=== PATIENT | female | born 1950 | race Caucasian/White ===

== ENCOUNTER 2018-03-11 15:30 | Outpatient (RCR) | payer MEDICARE, SELFPAY ==
--- NOTE | 2018-03-11 16:02 | ST.OPRE ---
Visit Care Team Role Provider Type RADHAMES Osborn Family Provider Advanced Practioner Clinician Primary Care Provider Specialty: Medical Address: [facility] [place], [address] Email: Johnson Hernandez MD Attending Provider Physician Specialty: Ear, Nose, Throat Address: [address] [place] [address], [id number] Email: Speech-Language Pathology Evaluation/Summary SALES AND SERVICE REPRESENTATIVE Clinical Swallow Evaluation Start: 02/05/18 10:08 Freq: Status: Active Protocol: Document 02/04/18 10:09 LEYDI (Rec: 02/05/18 10:33 LEYDI [email or web address]) Clinical Swallow Evaluation Session Time Visit Start Time 12:30 Visit Stop Time 13:25 Total Visit Minutes 55 Visit Information Visit Number Initial Evaluation Plan of Care Dates 02/04/18 - 04/03/18 Insurance Information Medicare Referral Referring Physician Fiordaliza Jiménez ENT Reason for Referral Dysphagia, Cough Setting Assessment Location Outpatient Care Visit Type Note Type Initial Evaluation Next Note Type Next Note Type Treatment Note Patient Information Identification Type Name History 67-yr-old female with history of difficulty swallowing pills . On December 02, 2017, she presented urgently to [facility] ER after feeling a calcium pill was stuck in her throat, resulting in 8 hours of coughing. Chest x-ray in ER was unremarkable. She was evaluated by ENT via laryngoscopy, which revealed presumed residual edema of the right piriform but cannot completely rule out menants of the calcium pill. The pt had no subsequent s/sx of aspiration. She did undergo Modified Barium Swallow Study on December 19, 2017, during which flash penetration of thin liquid was observed x1 and significant pharyngeal residue in valleculae and piriforms was consistently observed. Also noted were bone spurs at C4-5, 5-6, and 6-7 which did not appear to impede bolus flow. Dysphagia therapy with Speech Pathology and GI consult were recommended. The pt has an endoscopy scheduled next month. The pt continues to experience difficulty swallowing pills and also bread. She describes both as getting stuck either at the base of the throat or at chest level. She also reports frequent dry mouth secondary to medication and compensates by drinking water throughout the day and with meals to assist clearance of solids. Additional PMHx: Arthritis, back pain, easy bruising, depression, fibromyalgia, headaches, jaw pain, neuropathy, osteoporosis, seizures, vision problems Subjective Observations Case history was obtained through medical records and patient interview. The pt arrived on time and was able to state her concerns and goals for treatment. 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 The pt compensates as needed by adding manual pressure to left TMJ while chewing. Oral phase is otherwise WNL. Pharyngeal Impairment Mildly Impaired Pharyngeal Phase Strategies Sitting Upright (90 deg) Double Swallow Effortful Swallow Small Bites and Sips Alternate Liquids/Solids Pharyngeal Phase Comments Reduced strength, coordination , and/or ROM of pharyngeal musculature resulting in reduced hyolaryngeal excursion , incomplete closure of laryngeal vestibule, and significant pharyngeal residue and increasing risk of aspiration. Pt complained of sticking sensation in throat and at upper chest area with intake of regular solids (soft sandwich, dry cracker), which cleared with 1-3 swallows of liquid wash. Dry swallow alone following intake did not adequately clear sticking sensation. Findings Rehabilitation Potential Good Impressions Pt presents with moderate pharyngeal dysphagia and would benefit from skilled intervention to increase strength, coordination, and ROM of pharyngeal musculature; compensatory swallow training ; and education to reduce risk of aspiration. The pt will also benefit from GI consult, which is already in place. Also recommend Dental consult to address TMJ issues. Diet Recommendations Liquids Order Thin Diet Order Regular Medication Recommendations Whole in Carrier Comments Added moisture to solids. Aspiration Precautions Recommended Precautions Upright at 90 Degrees Alternate Liquids/Solids Small Bites/Sips Effortful Swallow Double Swallow Supraglottic Swallow Treatment Plan Appropriate for Therapy Yes Therapy Recommendations 1 visit per week for 3 weeks, tapering to 1 visit every 2-3 weeks. Anticipated duration: 2-3 months. Dysphagia Goals Pt will independently perform exercises to increase strength , coordination and ROM of pharyngeal and laryngeal musculature to reduce risk of aspiration. Pt will use compensatory swallow strategies independently to reduce risk of aspiration. Pt will tolerate regular texture, thin liquids, and pills whole in a carrier with no overt s/sx of aspiration. Referrals/Other Recommended Referrals GI Consult Dental Evaluation SALES AND SERVICE REPRESENTATIVE Treatment Note Start: 02/05/18 10:08 Freq: Status: Active Protocol: Document 02/24/18 17:24 LEYDI (Rec: 02/24/18 17:34 LEYDI [email or web address]) Speech Pathology Treatment Note Session Time Visit Start Time 14:30 Visit Stop Time 15:15 Total Visit Minutes 45 Visit Information Visit Number [id number] Plan of Care Dates 02/04/18 - 04/03/18 Insurance Information Medicare Setting Treatment Setting Outpatient Care Visit Type Note Type Treatment Note Next Note Type Next Note Type Treatment Note General Information General Information Hx of difficulty swallowing pills and bread. In November 2017 , pt had pill apparently lodge in larynx. MBSS performed 03/02: flash penetration thin liquid, pharyngeal residue at vallecula and pyriform sinuses . Dysphagia tx and GI referrals recommended. Subjective Observations/Patient Presentation Pt reported compliance with HEP tasks. One episode of difficulty clearing pill from oral cavity. No episodes of sticking in throat or esophagus. Pt has EGD procedure tomorrow. The pt requested a copy of her MBS video, which was provided with signed Release of Information form. Chief Complaint(s) Swallowing Additional Areas of Concern Swallowing pills & bread Rehab Expectation/Goals: Patient Goals Improve swallow function and comfort Patient Knowledge/Awareness of SALES AND SERVICE REPRESENTATIVE Role Good in Treatment Patient/Caregiver Compliance with Home Excellent Exercise Program Objective Short Term Goals Pt will independently perform exercises to increase strength , coordination and ROM of pharyngeal and laryngeal musculature to reduce risk of aspiration. Pt will use compensatory swallow strategies independently to reduce risk of aspiration. Pt will tolerate regular texture, thin liquids, and pills whole in a carrier with no overt s/sx of aspiration. Retirement Goals Pt will independently perform exercises to increase strength , coordination and ROM of pharyngeal and laryngeal musculature to reduce risk of aspiration. Treatment Activities Education provided RE GERD/LPR and potential dysphagia related symptoms. Pt performed Lakshmi, Shaker, base of tongue and laryngeal lift exercises independently. Oral trials of thin liquid and dry cracker: Sticking sensation of cracker at level of pyriform sinuses, cleared with liquid wash. No overt s/sx of aspiration observed. Assessment Patient Response to Treatment Good Rehab Potential Good Impairments Identified Dysarthria Progress Towards Goals Good Progress Assessment of Overall Progress Improving Assessment of Improvement Pt is making good progress toward goals, is compliant with HEP tasks which she demonstrates independence in performing. Good tolerance of thin liquid. Sticking sensation continues with dry cracker, cleared with liquid wash. No overt s/sx of aspiration. Reviewed with Patient Goals Progress Being Made Home Exercise Program Patient/Caregiver Understanding Excellent Plan Comment Anticipate DC in 1-2 visits Treatment Emphasis Next Session F/U RE EGD results, DC planning Therapeutic Contents Client Education Home Exercise Program Swallowing/Feeding Provided Patient/Caregiver Instruction Home Exercise Program Plan of Care Questions/Concerns Therapy Recommendations Continue with Current Program Recommended Exercises/ Activities
== END 2018-06-25 09:27 ==
LOC: SP 15:30
PROVIDERS: Family Provider Nurse Practitioner Family; PCP Nurse Practitioner Family; Visit Provider Otolaryngology
DX: R13.19 Other dysphagia (principal); R05 Cough
CPT/HCPCS: 92526; 92610

== ENCOUNTER → 2019-01-29 10:45 | Outpatient (CLI) | payer MEDICARE, SELFPAY ==
--- NOTE | 2019-01-29 | DI.RAD.S_ITS ---
PROCEDURE: XR HIP W PEL IF DONE RT 2V INDICATIONS: Unilateral primary osteoarthritis, right hip TECHNIQUE: AP pelvis with lateral view(s) of the right hip(s). COMPARISON: [facility], , HIPBILAT 3TO4V W PEL IF PERFD, 10/23/2015, 12:25. FINDINGS: Bones: Moderate right hip joint osteophytic changes are seen. No fractures or dislocations. No evidence of avascular necrosis of femoral head. Pelvic ring appears intact. No suspicious bony lesions. Soft tissues: The visualized bowel gas pattern is normal. No suspicious soft tissue calcifications. IMPRESSION: Moderate right hip joint osteoarthritis. No fracture or dislocation. No evidence of avascular necrosis. Dictated by: Brad Krause M.D. on 01/29/2019 at 12:22 Approved by: Brad Krause M.D. on 01/29/2019 at 12:23
== END ==
PROVIDERS: Family Provider Nurse Practitioner Family; PCP Nurse Practitioner Family; Visit Provider Nurse Practitioner Family
DX: M16.11 Unilateral primary osteoarthritis, right hip (principal)
CPT/HCPCS: 73502

== ENCOUNTER → 2021-03-05 11:22 | Outpatient (CLI) | payer MEDICARE, SELFPAY ==
[2021-03-05 20:26] LABS: Add Manual Diff / Slide Review NO; Basophils Absolute Auto 100 /uL (0-100); Basophils Percent Auto 1.1 % (0-2); Eosinophils Absolute Auto 100 /uL (0-450); Eosinophils Percent Auto 2.7 % (2-4); Hematocrit 32.3 % (36-46); Lymphocytes Absolute Auto 2100 /uL (1100-4500); Lymphocytes Percent Auto 37.6 % (25-40); Mean Corpuscular HGB Conc 33.9 % (30-36); Mean Corpuscular Hemoglobin 29.3 PG (26-34); Mean Corpuscular Volume 86.3 fL (80-100); Monocytes Absolute Auto 400 /uL (0-900); Monocytes Percent Auto 7.4 % (3-14); Neutrophils Absolute Auto 2900 /uL (1500-7000); Neutrophils Percent Auto 51.2 % (50-75); Platelet Count 228 X10^3/uL (150-400); Red Blood Cell Count 3.74 X10^6/uL (4.0-5.2); White Blood Cell Count 5.6 X10^3/uL (4.5-11.0)
[2021-03-05 20:27] LABS: Alanine Aminotransferase 12 IU/L (<35); Albumin 3.8 g/dL (3.5-5.0); Albumin Globulin Ratio 1.3 (1.0-2.8); Alkaline Phosphatase 59 U/L (38-126); Aspartate Aminotransferase 48 IU/L (14-36); BUN Creatinine Ratio 14.7 (6-22); Bilirubin Total 0.7 mg/dL (0.2-1.3); Blood Urea Nitrogen 16 mg/dL (7-17); Calcium 9.5 mg/dL (8.4-10.2); Carbon Dioxide 28 mmol/L (22-32); Chloride 103 mmol/L (98-107); Estimated Glomerular Filt Rate 49.8 mL/min (>60); Globulin 2.9 g/dL (1.7-4.1); Glucose 94 mg/dL (80-110); Potassium 5.2 mmol/L (3.4-5.1); Sodium 137 mmol/L (137-145); Total Protein 6.7 g/dL (6.3-8.2)
[2021-03-05 20:30] LABS: HEMOLYSIS 70 (0-50)
[2021-03-05 20:55] LABS: TSH w/ Reflex to FT4 6.14 uIU/mL (0.47-4.68)
[2021-03-05 22:53] LABS: Free T4, Direct Thyroxine 1.17 ng/dL (0.78-2.19)
== END ==
PROVIDERS: PCP Family Medicine; Referring Provider Family Medicine; Visit Provider Family Medicine
DX: G40.909 Epilepsy, unspecified, not intractable, without status epilepticus (principal); M54.5 Low back pain; F32.9 Major depressive disorder, single episode, unspecified; G89.4 Chronic pain syndrome; N18.30 Chronic kidney disease, stage 3 unspecified
CPT/HCPCS: 80053; 84439; 84443; 85025

== ENCOUNTER → 2021-09-26 12:34 | Outpatient (CLI) | payer MEDICARE, SELFPAY ==
[2021-09-26 19:00] LABS: Add Manual Diff / Slide Review NO; Basophils Absolute Auto 100 /uL (0-100); Basophils Percent Auto 1.4 % (0-2); Eosinophils Absolute Auto 100 /uL (0-450); Eosinophils Percent Auto 2.6 % (2-4); Hematocrit 34.6 % (36-46); Hemoglobin 11.6 g/dL (12.0-16.0); Lymphocytes Absolute Auto 2200 /uL (1100-4500); Lymphocytes Percent Auto 40.3 % (25-40); Mean Corpuscular HGB Conc 33.6 % (30-36); Mean Corpuscular Hemoglobin 28.8 PG (26-34); Mean Corpuscular Volume 85.6 fL (80-100); Monocytes Absolute Auto 400 /uL (0-900); Monocytes Percent Auto 6.9 % (3-14); Neutrophils Absolute Auto 2700 /uL (1500-7000); Neutrophils Percent Auto 48.8 % (50-75); Platelet Count 236 X10^3/uL (150-400); Red Blood Cell Count 4.05 X10^6/uL (4.0-5.2); Red Cell Distribution Width 14.7 % (11.6-14.8); White Blood Cell Count 5.6 X10^3/uL (4.5-11.0)
[2021-09-26 19:28] LABS: Free T3, Triiodothyronine Free 2.82 pg/mL (2.77-5.27)
[2021-09-26 19:42] LABS: TSH w/ Reflex to FT4 5.22 uIU/mL (0.47-4.68)
[2021-09-26 20:44] LABS: Alanine Aminotransferase 9 IU/L (<35); Albumin 4.2 g/dL (3.5-5.0); Albumin Globulin Ratio 1.5 (1.0-2.8); Alkaline Phosphatase 51 U/L (38-126); Aspartate Aminotransferase 28 IU/L (14-36); BUN Creatinine Ratio 10.3 (6-22); Bilirubin Total 0.6 mg/dL (0.2-1.3); Blood Urea Nitrogen 12 mg/dL (7-17); Calcium 10.2 mg/dL (8.4-10.2); Carbon Dioxide 36 mmol/L (22-32); Chloride 103 mmol/L (98-107); Estimated Glomerular Filt Rate 46.3 mL/min (>60); Globulin 2.8 g/dL (1.7-4.1); Glucose 96 mg/dL (80-110); HEMOLYSIS < 15 (0-50); Potassium 4.3 mmol/L (3.4-5.1); Sodium 140 mmol/L (137-145)
[2021-09-26 23:02] LABS: Free T4, Direct Thyroxine 1.09 ng/dL (0.78-2.19)
== END ==
PROVIDERS: PCP Family Medicine; Referring Provider Physician Assistant; Visit Provider Physician Assistant
DX: Z79.899 Other long term (current) drug therapy (principal); D64.9 Anemia, unspecified; D75.A Glucose-6-phosphate dehydrogenase (G6PD) deficiency without anemia; N28.9 Disorder of kidney and ureter, unspecified; R94.6 Abnormal results of thyroid function studies; Z86.010 Personal history of colon polyps
CPT/HCPCS: 80053; 84439; 84443; 84481; 85025

== ENCOUNTER → 2021-10-04 15:15 | Outpatient (CLI) | payer MEDICARE, SELFPAY ==
[2021-10-08 08:35] LABS: Fecal Immunochemical Test Negative (Negative)
== END ==
PROVIDERS: PCP Family Medicine; Referring Provider Physician Assistant; Visit Provider Physician Assistant
DX: D64.9 Anemia, unspecified (principal); D75.A Glucose-6-phosphate dehydrogenase (G6PD) deficiency without anemia; N28.9 Disorder of kidney and ureter, unspecified; R94.6 Abnormal results of thyroid function studies; Z79.899 Other long term (current) drug therapy; Z86.010 Personal history of colon polyps
CPT/HCPCS: 82274

== ENCOUNTER → 2021-11-07 09:28 | Outpatient (CLI) | payer MEDICARE, SELFPAY ==
[2021-11-07 18:48] LABS: Add Manual Diff / Slide Review NO; Basophils Absolute Auto 0 /uL (0-100); Basophils Percent Auto 0.5 % (0-2); Eosinophils Absolute Auto 100 /uL (0-450); Eosinophils Percent Auto 2.3 % (2-4); Hematocrit 34.7 % (36-46); Hemoglobin 11.7 g/dL (12.0-16.0); Lymphocytes Absolute Auto 2100 /uL (1100-4500); Lymphocytes Percent Auto 38.1 % (25-40); Mean Corpuscular HGB Conc 33.6 % (30-36); Mean Corpuscular Hemoglobin 28.7 PG (26-34); Mean Corpuscular Volume 85.5 fL (80-100); Monocytes Absolute Auto 400 /uL (0-900); Monocytes Percent Auto 6.5 % (3-14); Neutrophils Absolute Auto 2800 /uL (1500-7000); Neutrophils Percent Auto 52.6 % (50-75); Platelet Count 238 X10^3/uL (150-400); Red Blood Cell Count 4.06 X10^6/uL (4.0-5.2); Red Cell Distribution Width 14.2 % (11.6-14.8); White Blood Cell Count 5.4 X10^3/uL (4.5-11.0)
[2021-11-07 18:57] LABS: Cholesterol 205 mg/dL (140-199); HDL Cholesterol 89 mg/dL (40-60); LDL Cholesterol Calculated 95 mg/dL (<100); Triglycerides 107 mg/dL (35-150)
[2021-11-07 19:00] LABS: Alanine Aminotransferase 9 IU/L (<35); Albumin 4.3 g/dL (3.5-5.0); Albumin Globulin Ratio 1.5 (1.0-2.8); Alkaline Phosphatase 52 U/L (38-126); Aspartate Aminotransferase 28 IU/L (14-36); BUN Creatinine Ratio 9.3 (6-22); Bilirubin Total 0.8 mg/dL (0.2-1.3); Blood Urea Nitrogen 10 mg/dL (7-17); Calcium 9.3 mg/dL (8.4-10.2); Carbon Dioxide 32 mmol/L (22-32); Chloride 103 mmol/L (98-107); Estimated Glomerular Filt Rate 50.3 mL/min (>60); Globulin 2.9 g/dL (1.7-4.1); Glucose 90 mg/dL (80-110); HEMOLYSIS < 15 (0-50); Potassium 4.3 mmol/L (3.4-5.1); Sodium 139 mmol/L (137-145); Total Protein 7.2 g/dL (6.3-8.2)
[2021-11-07 19:29] LABS: TSH w/ Reflex to FT4 6.45 uIU/mL (0.47-4.68)
[2021-11-07 20:36] LABS: Free T4, Direct Thyroxine 1.45 ng/dL (0.78-2.19)
== END ==
PROVIDERS: Internal Medicine Cardiovascular Disease; PCP Family Medicine; Visit Provider Physician Assistant
DX: Z79.899 Other long term (current) drug therapy (principal); N90.4 Leukoplakia of vulva; E03.8 Other specified hypothyroidism; Z13.220 Encounter for screening for lipoid disorders; N28.9 Disorder of kidney and ureter, unspecified; R94.6 Abnormal results of thyroid function studies; D64.9 Anemia, unspecified; Z13.6 Encounter for screening for cardiovascular disorders
CPT/HCPCS: 80053; 80061; 84439; 84443; 85025

== ENCOUNTER → 2022-01-30 10:02 | Outpatient (CLI) | payer MEDICARE, SELFPAY ==
[2022-01-30 19:54] LABS: Alanine Aminotransferase 10 IU/L (<35); Albumin 4.2 g/dL (3.5-5.0); Albumin Globulin Ratio 1.4 (1.0-2.8); Alkaline Phosphatase 68 U/L (38-126); Aspartate Aminotransferase 79 IU/L (14-36); BUN Creatinine Ratio 9.6 (6-22); Bilirubin Total 0.7 mg/dL (0.2-1.3); Blood Urea Nitrogen 11 mg/dL (7-17); Carbon Dioxide 30 mmol/L (22-32); Chloride 103 mmol/L (98-107); Estimated Glomerular Filt Rate 52 mL/min (>60); Globulin 3.1 g/dL (1.7-4.1); Glucose 98 mg/dL (80-110); HEMOLYSIS 22 (0-50); Potassium 4.4 mmol/L (3.4-5.1); Sodium 138 mmol/L (137-145); Total Protein 7.3 g/dL (6.3-8.2)
[2022-02-01 05:14] LABS: Thyroid Peroxidase Antibodies <8 IU/mL (0-34)
== END ==
PROVIDERS: PCP Family Medicine; Visit Provider Physician Assistant
DX: M79.7 Fibromyalgia (principal); R79.89 Other specified abnormal findings of blood chemistry
CPT/HCPCS: 80053; 84443; 86376

== ENCOUNTER → 2022-02-19 12:37 | Outpatient (CLI) | payer MEDICARE, SELFPAY ==
--- NOTE | 2022-02-19 12:45 | DI.RAD.S_ITS ---
PROCEDURE: XR PELVIS 1-2V INDICATIONS: pubic bone pain TECHNIQUE: Single view(s) of the pelvis acquired. COMPARISON: None. FINDINGS: Bones: No fractures or dislocations. No suspicious bony lesions. Right hip arthroplasty is intact. There is moderate left hip joint space narrowing. Soft tissues: Visualized bowel gas pattern is normal. No suspicious soft tissue calcifications. IMPRESSION: No acute radiographic findings. Left hip osteoarthritis. Dictated by: Georgiana Nicholson M.D. on 02/19/2022 at 15:40 Approved by: Georgiana Nicholson M.D. on 02/19/2022 at 15:40
== END ==
PROVIDERS: PCP Family Medicine; Referring Provider Physician Assistant; Visit Provider Physician Assistant
DX: M16.12 Unilateral primary osteoarthritis, left hip (principal); M89.8X8 Other specified disorders of bone, other site; Z96.641 Presence of right artificial hip joint
CPT/HCPCS: 72170

== ENCOUNTER → 2022-03-20 10:57 | Outpatient (CLI) | payer MEDICARE, SELFPAY ==
--- NOTE | 2022-03-20 | DI.RAD.S_ITS ---
PROCEDURE: XR SACROILIAC JOINT MIN 3V INDICATIONS: LOW BACK PAIN, SACROILIITIS, PUBIC BONE PAIN TECHNIQUE: 3 views of the sacroiliac joints were acquired. COMPARISON: [facility], CT, CT PEL WO CON, 03/20/2022, 11:11. FINDINGS: Bones: No bony erosions or ankylosis identified. No suspicious bony lesions. No fractures. Right hip arthroplasty. DDD at the lower lumbar spine. Soft tissues: Overlying bowel gas pattern is normal. No suspicious soft tissue densities. IMPRESSION: No radiographic signs of sacroiliitis identified. Lower lumbar spine DDD. Dictated by: Lukas Carr M.D. on 03/20/2022 at 16:29 Approved by: Lukas Carr M.D. on 03/20/2022 at 16:39
--- NOTE | 2022-03-20 11:04 | DI.CT.S_ITS ---
PROCEDURE: CT PEL WO CON INDICATIONS: Pubic bone pain TECHNIQUE: Noncontrast 3 mm axial sections acquired through the bony pelvis, with coronal and sagittal reformatting. COMPARISON: [facility], CR, XR SACROILIAC JOINT MIN 3V, 03/20/2022, 11:32. [facility], CR, XR PELVIS 1-2V, 02/19/2022, 12:34. FINDINGS: Image quality: Excellent. Bones: Patient is status post prior right total hip arthroplasty. Right hip alignment is anatomic. No gross hardware loosening or failure. Moderate left hip joint osteoarthritic changes are seen with joint space narrowing, subchondral sclerosis and cyst formation. No evidence of avascular necrosis of femoral head. Degenerative disc disease in visualized lower lumbar spine is seen. Mild osteoarthritic changes are seen in bilateral sacroiliac joints and symphysis pubis. No ankylosis or bony erosion is seen. No suspicious intraosseous lesion. Soft tissues: There is no pelvic free fluid or free air. No abnormal bowel wall thickening. Urinary bladder is decompressed and shows no gross abnormality. No gross abnormality is seen in uterus and bilateral adnexa. There is no pelvic lymphadenopathy. No discrete soft tissue mass or fluid collection. IMPRESSION: 1. Prior right total hip arthroplasty with anatomic right hip alignment. No evidence of hardware complication. 2. Moderate osteoarthritic changes in left hip joint, bilateral sacroiliac joints and symphysis pubis. No acute fracture or dislocation. No suspicious bony lesion. Degenerative disc disease in visualized lower lumbar spine. 3. No gross pelvic soft tissue abnormality. Dictated by: Brad Krause M.D. on 03/20/2022 at 20:38 Approved by: Brad Krause M.D. on 03/20/2022 at 20:42
== END ==
PROVIDERS: PCP Physician Assistant; Visit Provider Physician Assistant
DX: M79.7 Fibromyalgia (principal); M51.36 Other intervertebral disc degeneration, lumbar region; M54.50 Low back pain, unspecified; M47.816 Spondylosis without myelopathy or radiculopathy, lumbar region; M46.1 Sacroiliitis, not elsewhere classified; M25.551 Pain in right hip; M25.552 Pain in left hip; M54.9 Dorsalgia, unspecified; M70.60 Trochanteric bursitis, unspecified hip; M89.9 Disorder of bone, unspecified; G57.01 Lesion of sciatic nerve, right lower limb; Z79.891 Long term (current) use of opiate analgesic; Z96.641 Presence of right artificial hip joint
CPT/HCPCS: 72192; 72202

== ENCOUNTER → 2022-04-16 10:55 | Outpatient (CLI) | payer MEDICARE, SELFPAY ==
[2022-04-16 20:35] LABS: Alanine Aminotransferase 9 IU/L (<35); Albumin Globulin Ratio 1.6 (1.0-2.8); Alkaline Phosphatase 58 U/L (38-126); Aspartate Aminotransferase 26 IU/L (14-36); BUN Creatinine Ratio 13.1 (6-22); Bilirubin Total 0.6 mg/dL (0.2-1.3); Blood Urea Nitrogen 14 mg/dL (7-17); Carbon Dioxide 28 mmol/L (22-32); Chloride 102 mmol/L (98-107); Estimated Glomerular Filt Rate 56 mL/min (>60); Globulin 2.5 g/dL (1.7-4.1); Glucose 92 mg/dL (80-110); HEMOLYSIS < 15 (0-50); Potassium 4.2 mmol/L (3.4-5.1); Sodium 139 mmol/L (137-145); Total Protein 6.5 g/dL (6.3-8.2)
== END ==
PROVIDERS: PCP Physician Assistant; Visit Provider Physician Assistant
DX: R74.8 Abnormal levels of other serum enzymes (principal); R79.89 Other specified abnormal findings of blood chemistry; R94.6 Abnormal results of thyroid function studies; Z79.899 Other long term (current) drug therapy
CPT/HCPCS: 80053

== ENCOUNTER → 2022-06-25 12:28 | Outpatient (CLI) | payer MEDICARE, SELFPAY ==
--- NOTE | 2022-06-25 12:31 | DI.US.S_ITS ---
PROCEDURE: US PELVIC COMPLETE INDICATIONS: pelvic/pubic pain TECHNIQUE: Real-time scanning was performed of the pelvic organs, with image documentation. Additional endovaginal scanning was necessary due to incomplete visualization of the adnexal and endometrial structures by transabdominal scanning. COMPARISON: [facility], CR, XR PELVIS 1-2V, 02/19/2022, 12:34. [facility], CT, CT PEL WO CON, 03/20/2022, 11:11. FINDINGS: Uterus: Uterus is anteverted and normal in size at 5.8 x 3.1 x 2.8 cm. The myometrium is mildly heterogeneous. The endometrium measures 2.0 mm combined thickness. Trace anechoic endometrial fluid. Multiple nabothian cyst, largest measuring 9 mm. Ovaries: Ovaries are not identified. No adnexal masses seen. Other: No pathologic free abdominal or pelvic fluid. IMPRESSION: 1. Trace endometrial fluid; otherwise endometrium is normal thickness at 2 mm. 2. Ovaries not identified. We strive to produce accurate, complete, and clear reports of imaging services. To assist us in improving patient care, this report was composed using standard report templates and voice recognition software. Therefore, it may contain abnormal punctuation, insertions and/or omissions. Occasional wrong-word or sound-alike substitutions may occur. Though we review the report and make efforts to correct it, we do recommend that the report be read carefully in proper context to recognize any text inaccuracies. Dictated by: Bryson BOTELLO Interpreted: Linda Motta MD on 06/25/2022 at 13:40 Transcribed by: VIANCA on 06/25/2022 at 13:42 Approved by: Linda Motta M.D. on 06/26/2022 at 8:14
== END ==
PROVIDERS: PCP Physician Assistant; Referring Provider Physician Assistant; Visit Provider Physician Assistant
DX: R10.2 Pelvic and perineal pain (principal)
CPT/HCPCS: 76830; 76856

== ENCOUNTER → 2022-11-06 09:23 | Outpatient (CLI) | payer MEDICARE, SELFPAY ==
[2022-11-06 19:29] LABS: Add Manual Diff / Slide Review NO; Basophils Absolute Auto 0 /uL (0-100); Basophils Percent Auto 0.6 % (0-2); Eosinophils Absolute Auto 100 /uL (0-450); Eosinophils Percent Auto 2.7 % (2-4); Hematocrit 32.8 % (36-46); Hemoglobin 10.8 g/dL (12.0-16.0); Lymphocytes Absolute Auto 2100 /uL (1100-4500); Lymphocytes Percent Auto 38.7 % (25-40); Mean Corpuscular HGB Conc 32.8 % (30-36); Mean Corpuscular Hemoglobin 28.5 PG (26-34); Mean Corpuscular Volume 86.8 fL (80-100); Monocytes Absolute Auto 400 /uL (0-900); Neutrophils Absolute Auto 2800 /uL (1500-7000); Platelet Count 225 X10^3/uL (150-400); Red Blood Cell Count 3.78 X10^6/uL (4.0-5.2); Red Cell Distribution Width 14.1 % (11.6-14.8); White Blood Cell Count 5.4 X10^3/uL (4.5-11.0)
[2022-11-06 19:44] LABS: Alanine Aminotransferase 13 IU/L (<35); Albumin Globulin Ratio 1.5 (1.0-2.8); Alkaline Phosphatase 59 U/L (38-126); Aspartate Aminotransferase 25 IU/L (14-36); BUN Creatinine Ratio 12.4 (6-22); Bilirubin Total 0.6 mg/dL (0.2-1.3); Blood Urea Nitrogen 14 mg/dL (7-17); Carbon Dioxide 29 mmol/L (22-32); Chloride 101 mmol/L (98-107); Cholesterol 190 mg/dL (140-199); Estimated Glomerular Filt Rate 52 mL/min (>60); Globulin 2.7 g/dL (1.7-4.1); Glucose 87 mg/dL (80-110); HDL Cholesterol 85 mg/dL (40-60); HEMOLYSIS < 15 (0-50); LDL Cholesterol Calculated 84 mg/dL (<100); Sodium 137 mmol/L (137-145); Total Protein 6.7 g/dL (6.3-8.2); Triglycerides 103 mg/dL (35-150)
[2022-11-06 20:01] LABS: Free T3, Triiodothyronine Free 2.71 pg/mL (2.77-5.27)
[2022-11-06 20:15] LABS: TSH w/ Reflex to FT4 3.81 uIU/mL (0.47-4.68)
== END ==
PROVIDERS: PCP Physician Assistant; Visit Provider Physician Assistant
DX: E03.8 Other specified hypothyroidism (principal); G47.9 Sleep disorder, unspecified; N90.4 Leukoplakia of vulva; D64.9 Anemia, unspecified; L65.9 Nonscarring hair loss, unspecified; R74.8 Abnormal levels of other serum enzymes; R79.89 Other specified abnormal findings of blood chemistry; R94.6 Abnormal results of thyroid function studies; Z79.899 Other long term (current) drug therapy; E78.89 Other lipoprotein metabolism disorders
CPT/HCPCS: 80053; 80061; 84443; 84481; 85025

== ENCOUNTER → 2022-11-28 14:00 | Outpatient (CLI) | payer MEDICARE, SELFPAY ==
[2022-11-28 19:25] LABS: Add Manual Diff / Slide Review NO; Basophils Absolute Auto 0 /uL (0-100); Basophils Percent Auto 0.7 % (0-2); Eosinophils Absolute Auto 100 /uL (0-450); Eosinophils Percent Auto 2.5 % (2-4); Hematocrit 31.9 % (36-46); Hemoglobin 11.1 g/dL (12.0-16.0); Lymphocytes Absolute Auto 2600 /uL (1100-4500); Lymphocytes Percent Auto 45.5 % (25-40); Mean Corpuscular HGB Conc 34.8 % (30-36); Mean Corpuscular Volume 86.3 fL (80-100); Monocytes Absolute Auto 400 /uL (0-900); Monocytes Percent Auto 7.4 % (3-14); Neutrophils Absolute Auto 2500 /uL (1500-7000); Neutrophils Percent Auto 43.9 % (50-75); Platelet Count 227 X10^3/uL (150-400); Red Cell Distribution Width 14.7 % (11.6-14.8); White Blood Cell Count 5.6 X10^3/uL (4.5-11.0)
[2022-11-28 19:49] LABS: Alanine Aminotransferase 13 IU/L (<35); Albumin 3.9 g/dL (3.5-5.0); Albumin Globulin Ratio 1.4 (1.0-2.8); Alkaline Phosphatase 62 U/L (38-126); Aspartate Aminotransferase 25 IU/L (14-36); BUN Creatinine Ratio 12.1 (6-22); Bilirubin Total 0.5 mg/dL (0.2-1.3); Blood Urea Nitrogen 13 mg/dL (7-17); Calcium 8.9 mg/dL (8.4-10.2); Carbon Dioxide 29 mmol/L (22-32); Chloride 104 mmol/L (98-107); Estimated Glomerular Filt Rate 56 mL/min (>60); Globulin 2.7 g/dL (1.7-4.1); Glucose 86 mg/dL (80-110); HEMOLYSIS < 15 (0-50); Potassium 4.1 mmol/L (3.4-5.1); Sodium 139 mmol/L (137-145); Total Protein 6.6 g/dL (6.3-8.2)
[2022-11-28 20:04] LABS: HEMOLYSIS < 15 (0-50); Iron 62 ug/dL (37-170)
[2022-11-28 20:13] LABS: Appearance Urine UA CLEAR; Bilirubin Urine UA NEGATIVE (NEGATIVE); Color Urine UA YELLOW; Glucose Urine UA NEGATIVE (Negative); Ketones Urine UA NEGATIVE (NEGATIVE); Leukocyte Esterase Urine UA NEGATIVE (NEGATIVE); Nitrite Urine UA NEGATIVE (Negative); Occult Blood Urine UA NEGATIVE (Negative); Protein Urine UA NEGATIVE (Negative); Specific Gravity Urine UA >=1.030 (1.000-1.035); Urobilinogen Urine UA 0.2 E.U./dL (0.2)
[2022-11-28 20:16] LABS: Ferritin 53 ng/mL (11-264)
[2022-11-28 20:20] LABS: Percent Iron Saturation 29 % (15-50); Total Iron Binding Capacity 211 ug/dL (265-497); Transferrin 165 mg/dL (206-381)
[2022-11-28 20:24] LABS: Bacteria Urine None Seen; Calcium Oxalate Crystals Urine Few; Culture Indicated Urine Cult Not Indicated; RBC Urine 0-1/HPF (0-5/HPF); WBC Urine 0-1/HPF (0-5/HPF); pH Urine UA 5.5 (4.5-8.0)
== END ==
PROVIDERS: PCP Physician Assistant; Visit Provider Physician Assistant
DX: N90.4 Leukoplakia of vulva (principal); L65.9 Nonscarring hair loss, unspecified; N28.9 Disorder of kidney and ureter, unspecified; D64.9 Anemia, unspecified; R79.89 Other specified abnormal findings of blood chemistry
CPT/HCPCS: 80053; 81001; 82728; 83540; 83550; 85025

== ENCOUNTER → 2023-07-15 12:23 | Outpatient (CLI) | payer MEDICARE, SELFPAY ==
--- NOTE | 2023-07-15 12:24 | DI.RAD.S_ITS ---
Bone Density Report Name: DANIELA UQARLES Age: 72 Sex: Female Ethnicity: White Date of : 1950 Indication: postmenopausal; screening for osteoporosis; Referring Provider: EMILI ANNA Study: Bone densitometry was performed. Exam Date: July 15, 2023 Accession number: [id number] Bone Density: Region BMD T-score Z-score Classification AP Spine(L1-L4) 0.797 -2.3 -0.1 Osteopenia Femoral Neck (Left) 0.566 -2.5 -0.7 Osteoporosis Total Hip (Left) 0.695 -2.0 -0.4 Osteopenia Total Forearm (Left) 0.517 -1.2 1.0 Osteopenia 1/3 Forearm (Left) 0.553 -2.4 -0.1 Osteopenia UD Forearm (Left) 0.428 -0.3 1.3 Normal World Health Organization criteria for BMD impression classify patients as: Normal (T-score at or above -1.0), Osteopenia (T-score between -1.0 and -2.5), or Osteoporosis (T-score at or below -2.5). 10-year Fracture Risk: FRAX not reported because: Some T-score for Spine Total or Hip Total or Femoral Neck at or below -2.5 Treated for osteoporosis Impression: The patient has osteoporosis, based on the Left Femoral Neck T-score. Discussion: It is important to ask patients whether they are taking their medications and to encourage continued and appropriate compliance with their osteoporosis therapies to reduce fracture risk. It is also important to review their risk factors and encourage appropriate calcium and vitamin D intakes, exercise, fall prevention and other lifestyle measures. Follow-Up: Consider a repeat BMD and Vertebral Fracture Assessment (VFA) exam in 2 years or sooner if medically necessary, to reassess this patient's status. Reported by: MARTA HARE MD on 07/15/2023 12:51:00 PM.
== END ==
PROVIDERS: PCP Physician Assistant; Referring Provider Physician Assistant; Visit Provider Physician Assistant
DX: M81.0 Age-related osteoporosis without current pathological fracture (principal)
CPT/HCPCS: 77080; 77081

== ENCOUNTER → 2023-09-18 13:01 | Outpatient (CLI) | payer MEDICARE, SELFPAY ==
[2023-09-18 19:52] LABS: Free T3, Triiodothyronine Free 2.54 pg/mL (2.77-5.27)
[2023-09-18 19:57] LABS: Add Manual Diff / Slide Review NO; Basophils Absolute Auto 100 /uL (0-100); Basophils Percent Auto 0.9 % (0-2); Eosinophils Absolute Auto 100 /uL (0-450); Eosinophils Percent Auto 2.1 % (2-4); Hematocrit 32.3 % (36-46); Lymphocytes Absolute Auto 2500 /uL (1100-4500); Lymphocytes Percent Auto 40.4 % (25-40); Mean Corpuscular Hemoglobin 29.4 PG (26-34); Mean Corpuscular Volume 86.6 fL (80-100); Monocytes Absolute Auto 500 /uL (0-900); Neutrophils Absolute Auto 3000 /uL (1500-7000); Neutrophils Percent Auto 48.6 % (50-75); Platelet Count 233 X10^3/uL (150-400); Red Blood Cell Count 3.72 X10^6/uL (4.0-5.2); Red Cell Distribution Width 13.6 % (11.6-14.8); White Blood Cell Count 6.3 X10^3/uL (4.5-11.0)
[2023-09-18 20:06] LABS: TSH w/ Reflex to FT4 2.79 uIU/mL (0.47-4.68)
[2023-09-22 15:30] LABS: Levetiracetam Keppra 33.1 ug/mL (10.0-40.0)
== END ==
PROVIDERS: Psychiatry & Neurology Neurology; PCP Physician Assistant; Visit Provider Physician Assistant
DX: G47.9 Sleep disorder, unspecified (principal); D64.9 Anemia, unspecified; R94.6 Abnormal results of thyroid function studies; Z86.69 Personal history of other diseases of the nervous system and sense organs
CPT/HCPCS: 80177; 84443; 84481; 85025

== ENCOUNTER → 2023-10-07 11:12 | Outpatient (CLI) | payer MEDICARE, SELFPAY ==
[2023-10-07 21:49] LABS: Creatinine Urine Random 209.3 mg/dL
[2023-10-07 21:58] LABS: Microalbumin Urine Random < 0.6 mg/dL (0-1.6)
== END ==
PROVIDERS: PCP Physician Assistant; Visit Provider Physician Assistant
DX: N28.9 Disorder of kidney and ureter, unspecified (principal); R80.9 Proteinuria, unspecified
CPT/HCPCS: 82043; 82570

== ENCOUNTER 2024-01-20 19:07 | Inpatient (IN) | payer MEDICARE, SELFPAY ==
[2024-01-20 19:17] VITALS: BP 137/60; PULSE 110; RESP 18; TEMP 36.9; O2SAT 99; BMI 22.3
[2024-01-20] MEDS: SODIUM CHLORIDE 0.9% 1,000 ML 1000 ML IV (19:33)
[2024-01-20] MEDS: MORPHINE 4 MG/ML INJ IV (19:33)
[2024-01-20] MEDS: ONDANSETRON 4 MG/2 ML INJ IV (19:33)
--- NOTE | 2024-01-20 19:33 | ED_ITS ---
HPI - Abdominal Pain General Chief Complaint: Abdominal Pain Stated Complaint: rt lower abd pain Time Seen by Provider: 01/20/24 19:08 Source: patient Mode of arrival: Ambulatory History of Present Illness HPI narrative: 73-year-old female with history of seizure disorder on Keppra presents by private vehicle for 2 days of right lower quadrant abdominal pain. Patient contacted her primary care doctor, who referred her to the emergency department for evaluation. Denies fevers, changes in bowel habits. Related Data Home Medications Medication Instructions Recorded Confirmed propranolol 120 mg capsule,24 120 mg PO BEDTIME 01/18/21 01/20/24 hr,extended release hydrocodone 7.5 mg-acetaminophen 1 tab PO BEDTIME PRN Pain (Scale 11/14/21 01/20/24 325 mg tablet Score 4-6) gabapentin 300 mg capsule 600 mg PO BEDTIME 01/20/24 01/20/24 raloxifene 60 mg tablet 60 mg PO BEDTIME for osteoporosis 01/20/24 01/20/24 Previous Rx's Medication Instructions Recorded levetiracetam 500 mg tablet 500 mg PO BID #180 tabs 09/06/16 (Keppra) levothyroxine 25 mcg tablet 25 mcg PO QAM #90 tabs 10/22/23 sertraline 50 mg tablet 50 mg PO DAILY #90 tabs 10/22/23 Allergies Allergy/AdvReac Type Severity Reaction Status Date / Time trazodone [TRAZODONE] Allergy Mild Nares Verified 01/20/24 19:17 swelled NSAIDS (Non-Steroidal AdvReac Intermediate Verified 01/20/24 21:55 Anti-Inflamma Review of Systems Review of Systems Narrative: See HPI Patient History Medical History Atrophic vulvovaginitis History of anemia Surgical History H/O wisdom tooth extraction H/O total hip arthroplasty H/O section History of carpal tunnel release Social History household members: none Smoking Status: Never smoker alcohol intake: never Smoking Status: Never smoker Substance Use Type: does not use Exam Initial Vital Signs Initial Vital Signs: Vital Signs Temperature 98.5 F 01/20/24 19:17 Pulse Rate 110 H 01/20/24 19:17 Respiratory Rate 18 01/20/24 19:17 Blood Pressure 137/60 01/20/24 19:17 Pulse Oximetry 99 01/20/24 19:17 Oxygen Delivery Method Room Air 01/20/24 19:17 Const: Awake, alert, no acute distress, nontoxic appearing Cardiac: Tachycardia, regular rhythm RESP: unlabored, clear bilaterally, no wheezing GI: Soft, right lower quadrant abdominal tenderness to deep palpation, no rebound or guarding MSK: Atraumatic, full range of motion, pulses equal Skin: Warm, Dry, intact, no rashes Neuro: AO x3, CN II-XII grossly intact, moves all extremities Course Orders Ordered: ED Orders 01/20/24 19:26 CBC Auto Diff [Complete Blood Count AUTO DIFF] Stat CMP [Comprehensive Metabolic Panel] Stat 01/20/24 19:33 CT abdomen pelvis w con Stat 01/20/24 19:45 UA Complete [Urinalysis and Microscopic] Stat Acetaminophen (Acetaminophen 325 Mg Tablet) 650 mg PO Q6H PRN PRN Reason: Fever/Mild Pain (1-3) Enoxaparin Sodium (Enoxaparin 40 Mg/0.4 Ml Syringe) 40 mg SUBCUT DAILY HELLEN Hydromorphone HCl (Hydromorphone 0.5 Mg Inj) 0.5 mg IV Q2H PRN PRN Reason: Pain, Severe (7-10) Last Admin: 01/21/24 01:29 Dose: 0.5 mg Documented By: AT Sodium Chloride (Normal Saline 0.9%) 1,000 mls @ 100 mls/hr IV CONT HELLEN Last Admin: 01/20/24 21:54 Dose: 100 mls/hr Documented By: AT Levetiracetam (Levetiracetam 250 Mg Tablet) 500 mg PO BID [facility] Levothyroxine Sodium (Levothyroxine 25 Mcg Tablet) 25 mcg PO 0600 [facility] Naloxone HCl (Naloxone 0.4 Mg/Ml Vial) 0.2 mg IV Q2MIN PRN PRN Reason: Opiate Reversal Ondansetron HCl (Ondansetron 4 Mg/2 Ml Inj) 4 mg IV Q8HR PRN PRN Reason: Nausea And Vomiting Oxycodone HCl (Oxycodone Ir 5 Mg Tablet) 5 mg PO Q3H PRN PRN Reason: Pain, Moderate (4-6) Last Admin: 01/20/24 23:01 Dose: 5 mg Documented By: AT Propranolol HCl (Propranolol 10 Mg Tablet) 60 mg PO BID HELLEN Sertraline HCl (Sertraline 50 Mg Tablet) 50 mg PO DAILY HELLEN Discontinued Medications Sodium Chloride (Normal Saline 0.9%) 1,000 mls @ 1,000 mls/hr IV BOLUS ONE Stop: 01/20/24 20:08 Last Admin: 01/20/24 19:33 Dose: 1,000 mls/hr Documented By: KD Piperacillin Sod/Tazobactam (Sod 4.5 gm/ Sodium Chloride) 100 mls @ 200 mls/hr IV NOW ONE Stop: 01/20/24 20:52 Last Admin: 01/20/24 21:18 Dose: 200 mls/hr Documented By: KD Morphine Sulfate (Morphine 4 Mg/Ml Inj) 4 mg IV NOW ONE Stop: 01/20/24 19:10 Last Admin: 01/20/24 19:33 Dose: 4 mg Documented By: SYEDA Non-Formulary Medication (Propranolol) 120 mg PO DAILY [facility] Ondansetron HCl (Ondansetron 4 Mg/2 Ml Inj) 4 mg IV NOW ONE Stop: 01/20/24 19:10 Last Admin: 01/20/24 19:33 Dose: 4 mg Documented By: SYEDA Vital Signs Vital signs: Vital Signs - 8 hr 01/20/24 19:17 01/20/24 19:41 Temperature 98.5 F Pulse Rate 110 H 99 H Respiratory Rate 18 18 Blood Pressure 137/60 131/61 Pulse Oximetry 99 99 Oxygen Delivery Method Room Air Room Air MDM - Abdominal Pain Differential Diagnosis Differential diagnosis: Likely abdominal pain, acute appendicitis and calculus of kidney Lab Data 01/20/24 19:26 01/20/24 19:26 Labs: Lab Results 01/20/24 01/20/24 Range/Units 19:26 19:45 WBC 15.2 H (4.5-11.0) X10^3/uL RBC 3.85 L (4.0-5.2) X10^6/uL Hgb 11.1 L (12.0-16.0) g/dL Hct 33.4 L (36-46) % MCV 86.7 (80-100) fL MCH 28.9 (26-34) PG MCHC 33.3 (30-36) % RDW 13.6 (11.6-14.8) % Plt Count 224 (150-400) X10^3/uL Neut % (Auto) 73.9 (50-75) % Lymph % (Auto) 19.1 L (25-40) % [place] % (Auto) 6.1 (3-14) % Eos % (Auto) 0.2 L (2-4) % Baso % (Auto) 0.7 (0-2) % Neut # (Auto) 92001 H (8940-3832) /uL Lymph # (Auto) 2900 (7464-6241) /uL [place] # (Auto) 900 (0-900) /uL Eos # (Auto) 0 (0-450) /uL Baso # (Auto) 100 (0-100) /uL Sodium 134 L (137-145) mmol/L Potassium 3.9 (3.4-5.1) mmol/L Chloride 101 (98-107) mmol/L Carbon Dioxide 21 L (22-32) mmol/L BUN 11 (7-17) mg/dL Creatinine 1.06 H (0.52-1.04) mg/dL Estimated GFR 56 L (>60) mL/min BUN/Creatinine Ratio 10.4 (6-22) Glucose 75 L (80-110) mg/dL Calcium 9.4 (8.4-10.2) mg/dL Total Bilirubin 1.3 (0.2-1.3) mg/dL AST 24 (14-36) IU/L ALT 10 (<35) IU/L Alkaline Phosphatase 77 (38-126) U/L Total Protein 7.6 (6.3-8.2) g/dL Albumin 4.6 (3.5-5.0) g/dL Globulin 3.0 (1.7-4.1) g/dL Albumin/Globulin Ratio 1.5 (1.0-2.8) Urine Color Yellow Urine Appearance Clear Urine pH 5.5 (4.5-8.0) Ur Specific [place] 1.015 (1.000-1.035) Urine Protein Negative (Negative) Urine Glucose (UA) Negative (Negative) g/dL Urine Ketones 3+ H (NEGATIVE) Urine Occult Blood Trace-intact (Negative) Urine Nitrate Negative (Negative) Urine Bilirubin Negative (NEGATIVE) Urine Urobilinogen 0.2 (0.2) E.U./dL Ur Leukocyte Esterase Negative (NEGATIVE) Urine RBC None seen (0-5/HPF) Urine WBC None seen (0-5/HPF) Ur Squamous Epith Cells 0-1 /hpf (0-5/HPF) Urine Bacteria None seen (None) Ur Culture Indicated? Cult not indicated Vol Urine Centrifuged 10ml (spun) Imaging Data CT scan - abdomen/pelvis: My Impression: PROCEDURE: CT ABDOMEN PELVIS W CON INDICATIONS: RLQ ABD PAIN TECHNIQUE: After the administration of intravenous contrast, axial sections acquired from the lung bases to the pubic symphysis. Coronal and sagittal reformats were performed. For radiation dose reduction, the following was used: automated exposure control, adjustment of mA and/or kV according to patient size. COMPARISON: [facility], CT, CT PEL WO CON, 03/20/2022, 11:11. FINDINGS: Image quality: Diagnostic Lower chest: Scattered scarring and atelectasis. Micro nodules and granulomas are present, not requiring dedicated follow-up unless the patient is considered high risk for malignancy. Mildly thickened distal esophageal wall, nonspecific appearance. Normal heart size. Small Bochdalek's hernias. Liver: Unremarkable Gallbladder and biliary system: Unremarkable, nondilated Pancreas: No ductal dilation Spleen: Nonenlarged Adrenals: No discrete nodule Kidneys: No hydronephrosis or solid renal mass Vessels and lymph nodes: The main portal vein appears patent. No abdominal aortic aneurysm. No pathologic lymph nodes by size criteria. Bowel and peritoneum: Mildly thickened gastric wall. No small bowel obstruction. There is an amorphous fluid collection in the right lower quadrant measuring about 4.9 x 4.6 cm. A suspected dilated appendix is present in this location. [id number] wall thickening of the ascending colon. There is adjacent mesenteric inflammation. Body wall: Unremarkable Pelvis: Small amount pelvic free fluid is present. Reproductive organs not well evaluated on CT, possible focal endometrial thickening in the lower uterine segment measuring 8 mm. Bladder is under distended. Bones: A right hip arthroplasty is present. There are degenerative changes. IMPRESSION: Suspected perforated appendicitis. 4.9 cm amorphous fluid collection is seen in the right lower quadrant, without a defined wall at this time. A ruptured appendix mucocele can have a similar appearance, although less common. Possible gastroesophageal and ascending colon wall thickening likely gastritis/colitis. Possible focal mild endometrial thickening in the uterus, consider nonurgent sonographic follow-up Other findings as above. Dictated by: Niko Mckenna M.D. on 01/20/2024 at 20:20 Approved by: Niko Mckenna M.D. on 01/20/2024 at 20:30 [facility] Narrative Medical decision making narrative: Well-appearing patient with right-sided abdominal pain. Abdomen soft, no peritoneal signs. Laboratory work reviewed, WBC count 15.2, chronic anemia with hemoglobin 11.1, baseline. Sodium 134, potassium 3.9, creatinine 1.06, liver enzymes normal. CT imaging shows a fluid collection in the right lower quadrant with suspected underlying dilated appendix. Overall concerning for appendicitis. General surgery consulted, who will admit the patient and will see tomorrow for possible appendectomy. Patient informed of results, she was in agreement with admission at this time Discharge Plan Departure Patient Disposition: Admitted As Inpatient Clinical Impression: Abdominal pain Admit Date/Time: 01/20/24 20:52 Admit Provider: Anand Sinha
[2024-01-20 19:37] LABS: Add Manual Diff / Slide Review NO; Basophils Absolute Auto 100 /uL (0-100); Basophils Percent Auto 0.7 % (0-2); Eosinophils Absolute Auto 0 /uL (0-450); Eosinophils Percent Auto 0.2 % (2-4); Hematocrit 33.4 % (36-46); Hemoglobin 11.1 g/dL (12.0-16.0); Lymphocytes Absolute Auto 2900 /uL (1100-4500); Lymphocytes Percent Auto 19.1 % (25-40); Mean Corpuscular HGB Conc 33.3 % (30-36); Mean Corpuscular Hemoglobin 28.9 PG (26-34); Mean Corpuscular Volume 86.7 fL (80-100); Monocytes Absolute Auto 900 /uL (0-900); Monocytes Percent Auto 6.1 % (3-14); Neutrophils Absolute Auto 11300 /uL (1500-7000); Neutrophils Percent Auto 73.9 % (50-75); Platelet Count 224 X10^3/uL (150-400); Red Blood Cell Count 3.85 X10^6/uL (4.0-5.2); Red Cell Distribution Width 13.6 % (11.6-14.8); White Blood Cell Count 15.2 X10^3/uL (4.5-11.0)
[2024-01-20 19:41] VITALS: BP 131/61; PULSE 99; RESP 18; O2SAT 99
[2024-01-20 19:50] LABS: Alanine Aminotransferase 10 IU/L (<35); Albumin 4.6 g/dL (3.5-5.0); Albumin Globulin Ratio 1.5 (1.0-2.8); Alkaline Phosphatase 77 U/L (38-126); Aspartate Aminotransferase 24 IU/L (14-36); BUN Creatinine Ratio 10.4 (6-22); Bilirubin Total 1.3 mg/dL (0.2-1.3); Blood Urea Nitrogen 11 mg/dL (7-17); Calcium 9.4 mg/dL (8.4-10.2); Carbon Dioxide 21 mmol/L (22-32); Chloride 101 mmol/L (98-107); Estimated Glomerular Filt Rate 56 mL/min (>60); Glucose 75 mg/dL (80-110); HEMOLYSIS < 15 (0-50); Potassium 3.9 mmol/L (3.4-5.1); Sodium 134 mmol/L (137-145); Total Protein 7.6 g/dL (6.3-8.2)
[2024-01-20 20:02] LABS: Appearance Urine UA CLEAR; Bilirubin Urine UA NEGATIVE (NEGATIVE); Color Urine UA YELLOW; Glucose Urine UA NEGATIVE (Negative); Ketones Urine UA 3+ (NEGATIVE); Leukocyte Esterase Urine UA NEGATIVE (NEGATIVE); Nitrite Urine UA NEGATIVE (Negative); Occult Blood Urine UA TRACE-INTACT (Negative); Protein Urine UA NEGATIVE (Negative); Specific Gravity Urine UA 1.015 (1.000-1.035); Urobilinogen Urine UA 0.2 E.U./dL (0.2)
[2024-01-20 20:04] LABS: pH Urine UA 5.5 (4.5-8.0)
[2024-01-20 20:37] LABS: Bacteria Urine None Seen; Culture Indicated Urine Cult Not Indicated; RBC Urine None Seen (0-5/HPF); Squamous Epithelial Cell Urine 0-1 /HPF (0-5/HPF); Urine Volume 10mL (spun); WBC Urine None Seen (0-5/HPF)
[2024-01-20 20:57] VITALS: BMI 22.3
[2024-01-20] MEDS: PIPERACILLIN/TAZO 4.5 GM in SODIUM CHLORIDE 0.9% 100 ML IV (21:18)
[2024-01-20 21:28] VITALS: BP 130/60; PULSE 90; RESP 18; O2SAT 99
[2024-01-20 21:42] VITALS: BP 117/56; PULSE 91; RESP 16; TEMP 37.6; O2SAT 99
[2024-01-20] MEDS: SODIUM CHLORIDE 0.9% 1,000 ML 100 ML IV (21:54)
[2024-01-20] MEDS: OXYCODONE IR 5 MG TABLET PO (23:01)
[2024-01-21] VITALS (10 sets, daily range): BP systolic 91–116; BP diastolic 40–48; PULSE 82–101; RESP 16; TEMP 36.6–37.7; O2SAT 97–100
[2024-01-21] MEDS: HYDROMORPHONE 0.5 MG INJ IV (01:29)
[2024-01-21] MEDS: ONDANSETRON 4 MG/2 ML INJ IV (05:47)
[2024-01-21] MEDS: LEVOTHYROXINE 25 MCG TABLET PO (05:47)
[2024-01-21 06:16] LABS: Add Manual Diff / Slide Review NO; Basophils Absolute Auto 100 /uL (0-100); Basophils Percent Auto 0.4 % (0-2); Eosinophils Absolute Auto 0 /uL (0-450); Eosinophils Percent Auto 0.2 % (2-4); Hematocrit 30.4 % (36-46); Hemoglobin 10.1 g/dL (12.0-16.0); Lymphocytes Absolute Auto 1900 /uL (1100-4500); Lymphocytes Percent Auto 14.1 % (25-40); Mean Corpuscular HGB Conc 33.2 % (30-36); Mean Corpuscular Hemoglobin 29.3 PG (26-34); Mean Corpuscular Volume 88.1 fL (80-100); Monocytes Absolute Auto 1100 /uL (0-900); Monocytes Percent Auto 8.3 % (3-14); Neutrophils Absolute Auto 10200 /uL (1500-7000); Platelet Count 204 X10^3/uL (150-400); Red Blood Cell Count 3.45 X10^6/uL (4.0-5.2); Red Cell Distribution Width 13.9 % (11.6-14.8); White Blood Cell Count 13.2 X10^3/uL (4.5-11.0)
[2024-01-21 06:36] LABS: BUN Creatinine Ratio 9.9 (6-22); Blood Urea Nitrogen 11 mg/dL (7-17); Calcium 8.6 mg/dL (8.4-10.2); Carbon Dioxide 16 mmol/L (22-32); Chloride 107 mmol/L (98-107); Estimated Glomerular Filt Rate 53 mL/min (>60); Glucose 51 mg/dL (80-110); HEMOLYSIS < 15 (0-50); Potassium 4.2 mmol/L (3.4-5.1); Sodium 137 mmol/L (137-145)
[2024-01-21] MEDS: SODIUM CHLORIDE 0.9% 1,000 ML 100 ML IV (08:35)
[2024-01-21] MEDS: levETIRAcetam 250 MG TABLET 500 MG PO ×2 (08:36→20:53)
[2024-01-21] MEDS: OXYCODONE IR 5 MG TABLET PO ×2 (08:36→20:03)
[2024-01-21] MEDS: ACETAMINOPHEN 325 MG TABLET 650 MG PO ×2 (08:36→20:03)
[2024-01-21] MEDS: SERTRALINE 50 MG TABLET PO (08:36)
[2024-01-21] MEDS: ENOXAPARIN 40 MG/0.4 ML SYRINGE SUBCUT (08:37)
--- NOTE | 2024-01-21 10:42 | P.HP_ITS ---
History of Present Illness History of Present Illness Chief complaint: rt lower abd pain Narrative: Cindy is a 73-year-old woman admitted to hospital with perforated appendicitis. Four days ago she developed vague lower abdominal pain which has subsequently migrated to the right lower quadrant. Upon arrival to the [facility] Emergency Department yesterday afebrile, WBC [address] abdomen pelvis personally reviewed demonstrates acute appendicitis with 5 cm fluid collection. Her abdominal pain has improved over the past 12 hours since admission with IV antibiotic therapy downtrending leukocytosis 13 today. [facility] Medical History Atrophic vulvovaginitis History of anemia Surgical History H/O wisdom tooth extraction H/O total hip arthroplasty H/O section History of carpal tunnel release Social History household members: none Smoking Status: Never smoker alcohol intake: never Meds Home Medications and Allergies Home Medications Medication Instructions Recorded Confirmed Type levetiracetam 500 mg tablet 500 mg PO BID #180 tabs 09/06/16 01/20/24 Rx (Keppra) propranolol 120 mg capsule,24 120 mg PO BEDTIME 01/18/21 01/20/24 History hr,extended release hydrocodone 7.5 mg-acetaminophen 1 tab PO BEDTIME PRN Pain (Scale 11/14/21 01/20/24 History 325 mg tablet Score 4-6) levothyroxine 25 mcg tablet 25 mcg PO QAM #90 tabs 10/22/23 01/20/24 Rx sertraline 50 mg tablet 50 mg PO DAILY #90 tabs 10/22/23 01/20/24 Rx gabapentin 300 mg capsule 600 mg PO BEDTIME 01/20/24 01/20/24 History raloxifene 60 mg tablet 60 mg PO BEDTIME for osteoporosis 01/20/24 01/20/24 History Allergies Allergy/AdvReac Type Severity Reaction Status Date / Time trazodone [TRAZODONE] Allergy Mild Nares Verified 01/20/24 19:17 swelled NSAIDS (Non-Steroidal AdvReac Intermediate Verified 01/20/24 21:55 Anti-Inflamma Exam Vital Signs (past 8 hours): - 01/21/24 05:29 01/21/24 05:58 01/21/24 08:00 Temperature 97.8 F 98.0 F Pulse Rate 101 H 89 Respiratory Rate 16 16 Blood Pressure 91/40 L 96/46 L Pulse Oximetry 97 97 98 Oxygen Delivery Method Room Air Oxygen Flow Rate 0 Oxygen Delivery Method Room Air Oxygen Flow Rate 0 Narrative Exam Narrative: GENERAL: A well nourished, well developed adult woman, resting comfortably, in no acute distress. HEENT: Normocephalic, atraumatic. No scleral icterus CHEST: Rising symmetrically. No audible wheezes CARDIOVASCULAR: Warm and well perfused. Regular rate ABDOMEN: Focal peritonitis right lower quadrant EXTREMITIES: Normal tone and without edema. NEUROLOGIC: Moving all extremities spontaneously. No gross motor deficits. Objective Labs 01/21/24 05:39 01/21/24 05:39 Labs: Laboratory Results - last 24 hr 01/20/24 01/20/24 01/21/24 19:26 19:45 05:39 WBC 15.2 H 13.2 H RBC 3.85 L 3.45 L Hgb 11.1 L 10.1 L Hct 33.4 L 30.4 L MCV 86.7 88.1 MCH 28.9 29.3 MCHC 33.3 33.2 RDW 13.6 13.9 Plt Count 224 204 Neut % (Auto) 73.9 77.0 H Lymph % (Auto) 19.1 L 14.1 L [place] % (Auto) 6.1 8.3 Eos % (Auto) 0.2 L 0.2 L Baso % (Auto) 0.7 0.4 Neut # (Auto) 72989 H 55195 H Lymph # (Auto) 2900 1900 [place] # (Auto) 900 1100 H Eos # (Auto) 0 0 Baso # (Auto) 100 100 Sodium 134 L 137 Potassium 3.9 4.2 Chloride 101 107 Carbon Dioxide 21 L 16 L BUN 11 11 Creatinine 1.06 H 1.11 H Estimated GFR 56 L 53 L BUN/Creatinine Ratio 10.4 9.9 Glucose 75 L 51 L Calcium 9.4 8.6 Total Bilirubin 1.3 AST 24 ALT 10 Alkaline Phosphatase 77 Total Protein 7.6 Albumin 4.6 Globulin 3.0 Albumin/Globulin Ratio 1.5 Urine Color Yellow Urine Appearance Clear Urine pH 5.5 Ur Specific [place] 1.015 Urine Protein Negative Urine Glucose (UA) Negative Urine Ketones 3+ H Urine Occult Blood Trace-intact Urine Nitrate Negative Urine Bilirubin Negative Urine Urobilinogen 0.2 Ur Leukocyte Esterase Negative Urine RBC None seen Urine WBC None seen Ur Squamous Epith Cells 0-1 /hpf Urine Bacteria None seen Ur Culture Indicated? Cult not indicated Vol Urine Centrifuged 10ml (spun) Assessment & Plan Assessment and plan (1) Acute perforated appendicitis: Status: Acute (2) Intra-abdominal fluid collection: Status: Acute Assessment & Plan narrative: 73-year-old woman admitted for perforated appendicitis with fluid collection. Laboratory studies and imaging personally reviewed. Fluid collection not yet organized into abscess and therefore not amenable to percutaneous drainage. We discussed management options including antibiotic therapy versus appendectomy. I strongly recommended proceeding with antibiotic therapy instead of surgery as an operation would increased risk given the current intra-abdominal conditions. Over the next few days the fluid collection made organized into an abscess at which point it can be percutaneously drained. -Clear liquid diet -Zosyn -SCDs and prophylactic Lovenox Quality VTE Deep Vein Thrombosis/Pulmonary Embolism Present on Admission: No
[2024-01-21] MEDS: PIPERACILLIN/TAZO 3.375 GM in SODIUM CHLORIDE 0.9% 100 ML IV ×2 (12:08→22:25)
--- NOTE | 2024-01-21 13:07 | CM.DANOTE ---
Initial DCP Assessment Visit Note Reviewed EMR and team rounds for status updates. Met with pt at bedside to introduce self and role, pt was found to be resting quietly in bed, expressing feeling that her pain is better controlled today. She is , lives in [place] [facility]. She states that she will need to find somebody to come pick her up at d/c, this [employer] will assist with this, as well as a Priority Boarding Pass for her return travel home. Payor: Derick PCP: Maryann Miller Pt is a 73 year-old F who presented to the ED last evening with 2-days of worsening R-sided lower quadrant pain. Imaging in the ED showed possible perforated appendicitis. Surgery was consulted, pt was made NPO and pt was admitted for further eval/monitoring with conservative measures, IV ABO's, and possible surgery if no improvement. DCP will continue to follow and assist with transition home and any further evolving needs during her admission. Discharge Planning/Care Management CM Discharge Assessment Start: 01/21/24 12:55 Freq: Status: Active Protocol: Document 01/21/24 13:00 DPL (Rec: 01/21/24 13:07 DPL [id number]) Discharge Planning Assessment Assigned Harmonic Analyst SRIKANTH Raymundo Advance Directives? No History Provided By Patient,Medical Record Expected Length of Stay 2 Has Patient been admitted in last 30 No days? Prior Living Arrangements House Household Members none Type of transporation used prior to Drives own vehicle admit Comment Pt will be needing a Priority Boarding Pass for the return home. Independent with ADL's Yes Is patient alert and oriented? Yes Comment N/A Caregiver for Another No Comment No identified home d/c needs at this time. Barriers to Discharge No Discharge Plan Home Transportation Arrangement Friend Referrals Initiated None needed Whiteboard Updated in Patient Room with Yes name and ext. # of Harmonic Analyst Review Status In Process Please Provide Date Initial DC 01/21/24 Assessment Was Performed
[2024-01-22] VITALS (7 sets, daily range): BP systolic 87–125; BP diastolic 39–71; PULSE 78–90; RESP 16; TEMP 36.7–37.4; O2SAT 95–99
[2024-01-22] MEDS: SODIUM CHLORIDE 0.9% 1,000 ML 100 ML IV (02:50)
[2024-01-22] MEDS: OXYCODONE IR 5 MG TABLET PO ×2 (05:09→14:23)
[2024-01-22] MEDS: ACETAMINOPHEN 325 MG TABLET 650 MG PO (05:09)
[2024-01-22] MEDS: ONDANSETRON 4 MG/2 ML INJ IV (05:13)
[2024-01-22 05:46] LABS: Add Manual Diff / Slide Review NO; Basophils Absolute Auto 0 /uL (0-100); Basophils Percent Auto 0.4 % (0-2); Eosinophils Absolute Auto 100 /uL (0-450); Eosinophils Percent Auto 1.2 % (2-4); Hematocrit 27.2 % (36-46); Hemoglobin 9.3 g/dL (12.0-16.0); Lymphocytes Absolute Auto 1300 /uL (1100-4500); Lymphocytes Percent Auto 15.6 % (25-40); Mean Corpuscular Hemoglobin 29.5 PG (26-34); Mean Corpuscular Volume 86.7 fL (80-100); Monocytes Absolute Auto 700 /uL (0-900); Monocytes Percent Auto 8.9 % (3-14); Neutrophils Absolute Auto 6100 /uL (1500-7000); Neutrophils Percent Auto 73.9 % (50-75); Platelet Count 202 X10^3/uL (150-400); Red Blood Cell Count 3.13 X10^6/uL (4.0-5.2); Red Cell Distribution Width 13.7 % (11.6-14.8); White Blood Cell Count 8.3 X10^3/uL (4.5-11.0)
[2024-01-22 05:53] LABS: BUN Creatinine Ratio 7.9 (6-22); Blood Urea Nitrogen 8 mg/dL (7-17); Calcium 8.5 mg/dL (8.4-10.2); Carbon Dioxide 24 mmol/L (22-32); Chloride 108 mmol/L (98-107); Estimated Glomerular Filt Rate 59 mL/min (>60); Glucose 106 mg/dL (80-110); HEMOLYSIS < 15 (0-50); Potassium 3.7 mmol/L (3.4-5.1); Sodium 137 mmol/L (137-145)
[2024-01-22] MEDS: LEVOTHYROXINE 25 MCG TABLET PO (05:53)
[2024-01-22] MEDS: PIPERACILLIN/TAZO 3.375 GM in SODIUM CHLORIDE 0.9% 100 ML IV (06:47)
[2024-01-22] MEDS: levETIRAcetam 250 MG TABLET 500 MG PO (08:20)
[2024-01-22] MEDS: ENOXAPARIN 40 MG/0.4 ML SYRINGE SUBCUT (08:20)
[2024-01-22] MEDS: SERTRALINE 50 MG TABLET PO (08:20)
--- NOTE | 2024-01-22 08:44 | PC.NURSE ---
Patient complained of 4/10 pain, stated that she does not need any pain medication at this time. She did receive her other medications and took them without difficulty. Patients abdomen is soft and her bt are hypoactive. She is resting comfortably and tolerating her clear liquid diet.
--- NOTE | 2024-01-22 11:48 | CM.DPNOTE ---
DC Note Discharge home today per Dr Whitman. Patient requests taxi to the [employer] dock, after which patient will walk on to the [employer] back to [place]. Patient requests to leave the hospital at 1500 and will picking machine operator her medications at [place] [facility] before taxi arrives. Placed call to [employer] P [phone]; taxi scheduled for 1500, picking machine operator outside of hospital, main entrance. Completed and signed the Taxi voucher form, $15 per [employer]. Copy provided to patient, original given to KERRY Tobar RN updated. Plan: Discharge home, close outpatient follow up. NO addtl needs from this CM team. ABDI
--- NOTE | 2024-01-22 13:22 | PM.DS.1 ---
History of Present Illness History of Present Illness Date Patient Seen: 01/22/24 Time Patient Seen: 13:22 Chief complaint: rt lower abd pain Narrative: Cindy is a 73-year-old woman admitted to hospital with perforated appendicitis. Four days ago she developed vague lower abdominal pain which has subsequently migrated to the right lower quadrant. Upon arrival to the [facility] Emergency Department yesterday afebrile, WBC [address] abdomen pelvis personally reviewed demonstrates acute appendicitis with 5 cm fluid collection. Her abdominal pain has improved over the past 12 hours since admission with IV antibiotic therapy downtrending leukocytosis 13 today. Discharge Providers Provider Date of admission: 01/21/24 12:12 Discharge Date: 01/22/24 Primary care physician: Maryann Miller PA-C Discharge provider: Nilson Whitman MD Summary Hospital Course Discharge Diagnosis: Perforated appendicitis Intra-abdominal fluid collection Hospital Course: Liz was hospitalized for perforated appendicitis with associated phlegmon. She has a intra-abdominal fluid collection which had not yet organized into an abscess and was therefore not amenable to percutaneous drainage. She was treated with antibiotic therapy as surgical intervention would have been considerably more challenging in the setting of perforation fluid collection. She responded well to antibiotic therapy. Her leukocytosis resolved she was tolerant of a diet and her pain significantly improved. She understands that there is a possibility that she may develop in intra abdominal abscess which would necessitate drainage or she may recover entirely. Plan is for repeat CT abdomen pelvis early week of January 25 for re-evaluation of intra-abdominal fluid collection. We discussed possible interval appendectomy in 3 months' time. Exam Vital Signs (past 8 hours): - 01/22/24 08:00 01/22/24 09:00 01/22/24 12:00 Temperature 98.7 F 98.1 F Pulse Rate 89 81 Respiratory Rate 16 16 Blood Pressure 87/39 L 98/39 L Pulse Oximetry 96 99 Oxygen Delivery Method Room Air Oxygen Flow Rate 0 0 01/22/24 12:53 Temperature Pulse Rate Respiratory Rate Blood Pressure Pulse Oximetry Oxygen Delivery Method Room Air Oxygen Flow Rate Oxygen Delivery Method Room Air Oxygen Flow Rate 0 Narrative Exam Narrative: General adult woman alert oriented no acute distress Chest nonlabored respiration Abdomen soft minimally tender to palpation. Objective Labs 01/22/24 05:10 01/22/24 05:10 Labs: Laboratory Results - last 24 hr 01/22/24 05:10 WBC 8.3 RBC 3.13 L Hgb 9.3 L Hct 27.2 L MCV 86.7 MCH 29.5 MCHC 34.0 RDW 13.7 Plt Count 202 Neut % (Auto) 73.9 Lymph % (Auto) 15.6 L [place] % (Auto) 8.9 Eos % (Auto) 1.2 L Baso % (Auto) 0.4 Neut # (Auto) 6100 Lymph # (Auto) 1300 [place] # (Auto) 700 Eos # (Auto) 100 Baso # (Auto) 0 Sodium 137 Potassium 3.7 Chloride 108 H Carbon Dioxide 24 BUN 8 Creatinine 1.01 Estimated GFR 59 L BUN/Creatinine Ratio 7.9 Glucose 106 Calcium 8.5 PFSH Medical History Atrophic vulvovaginitis History of anemia Surgical History H/O wisdom tooth extraction H/O total hip arthroplasty H/O section History of carpal tunnel release Social History household members: none Smoking Status: Never smoker alcohol intake: never Discharge Plan Discharge Plan Patient Disposition: Home Provider Discharge Comment: Plan for CT A/P Early next week for reassessment of intra abdominal fluid collection Return to the emergency department for worsening abdominal pain, temp >101.5, nausea Discharge orders & Medications Prescriptions: New amoxicillin-pot clavulanate [Augmentin] 500-125 mg tablet 1 tab PO BID Qty: 10 0RF oxycodone 5 mg tablet 5 mg PO Q6H PRN (Reason: pain) Qty: 10 0RF Continued levetiracetam [Keppra] 500 MG tablet 500 mg PO BID Qty: 180 3RF levothyroxine 25 mcg tablet 25 mcg PO QAM Qty: 90 3RF sertraline 50 mg tablet 50 mg PO DAILY Qty: 90 3RF Rx Instructions: takes at bedtime gabapentin 300 mg capsule 600 mg PO BEDTIME raloxifene 60 mg tablet 60 mg PO BEDTIME propranolol 120 mg capsule,extended release 24 hr 120 mg PO BEDTIME hydrocodone-acetaminophen 7.5-325 mg tablet 1 tab PO BEDTIME PRN (Reason: Pain (Scale Score 4-6)) Medication counseling provided by Pharmacist: Yes Pharmacist Comment: Counseled by pharmacy technician infusion, Diana Ramires Follow up/Referrals: Maryann Miller PA-C [Primary Care Provider] - Diet/Activity/Treatments Diet: Diet as Tolerated Skin/Wound/Dressing Care Report to your healthcare provider any signs of infection, such as:: chills, fever and increased pain Visit Report/Discharge Packet Instructions: DI for Appendicitis -- Adult, Appendicitis, Oxycodone, Amoxicillin Stand Alone Forms: Patient Portal/API, Stroke Signs & Symptoms Discharge Data Primary Care Provider: Maryann Miller Quality VTE Deep Vein Thrombosis/Pulmonary Embolism Present on Admission: No
== END 2024-01-22 14:40 | disposition home or self-care (01) | DRG 373 ==
LOC: ED 19:13 → AC 01-21 07:38
PROVIDERS: Surgery; Admitting Provider Surgery; Emergency Provider Emergency Medicine; PCP Physician Assistant; Referring Provider Emergency Medicine; Visit Provider Surgery
DX: K35.32 Acute appendicitis with perforation, localized peritonitis, and gangrene, without abscess (principal)
CPT/HCPCS: 36415; 74177; 80048; 80053; 81001; 85025; 96374; 96375; 99284; 99285; G0378; J1170; J1650; J2270; J2405; J2543; Q9967

== ENCOUNTER 2024-01-25 10:35 | Inpatient (IN) | payer MEDICARE, SELFPAY ==
[2024-01-25] VITALS (15 sets, daily range): BP systolic 102–120; BP diastolic 51–58; PULSE 77–111; RESP 18–20; TEMP 37.7–38.9; O2SAT 94–99; BMI 23.3
--- NOTE | 2024-01-25 11:07 | DI.RAD.S_ITS ---
PROCEDURE: XR CHEST 1V INDICATIONS: Eval for pneumonia TECHNIQUE: One view of the chest was acquired. COMPARISON: [facility], , CHEST 1 VIEW, 12/03/2017, 0:47. FINDINGS: Surgical changes and devices: None. Lungs and pleura: Lungs are clear. No pleural effusions or pneumothorax. Mediastinum: Mediastinal contours appear normal. Heart size is normal. Bones and chest wall: No suspicious bony lesions. Overlying soft tissues appear unremarkable. IMPRESSION: No acute cardiopulmonary abnormality is seen. Approved by: Luisito Ramachandran M.D. on 01/25/2024 at 10:59
--- NOTE | 2024-01-25 11:09 | DI.CT.S_ITS ---
PROCEDURE: CT ABDOMEN PELVIS W CON INDICATIONS: Recent perforated appendicitis now septic TECHNIQUE: After the administration of intravenous contrast, axial sections acquired from the lung bases to the pubic symphysis. Coronal and sagittal reformats were performed. For radiation dose reduction, the following was used: automated exposure control, adjustment of mA and/or kV according to patient size. COMPARISON: [facility], CT, CT ABDOMEN PELVIS W CON, 01/20/2024, 19:41. FINDINGS: Lower thorax: Small right pleural effusion Liver: Normal in size and attenuation. No contour deformity present. Biliary system: Distended with Phrygian cap, an abdominal variant Pancreas: Unremarkable without mass or inflammation evident. Spleen: Normal in size and density. Adrenals: Normal morphology and density. Reproductive system: Unremarkable as visualized. Urinary system: Normal renal size and attenuation. No renal calculi, hydronephrosis, or solid mass present. Urinary bladder unremarkable. Gastrointestinal system: Inflamed distended appendix again noted with surrounding developing abscess in the right lower quadrant. Abscess now shows developing enhancing wall, measures overall 5.5 cm in greatest dimension. Additional fluid is collecting around the dome of the liver as well as within the pelvis, also likely infected. There is now a loop of small bowel traversing the top of the abscess which shows wall thickening and enhancement, likely secondary enteritis. No evidence of bowel obstruction or pneumoperitoneum Peritoneal spaces: No mesenteric or retroperitoneal adenopathy. No free air. No free fluid. Vasculature: The IVC, aorta and iliac vasculature are unremarkable. Abdominal wall: Abdominal wall intact without evidence of ventral or inguinal hernias. Musculoskeletal: Normal bone mineralization. Degenerative disc disease and arthropathy noted in lower lumbar spine. Right hip prosthesis limits assessment of several images in the pelvis advanced left hip osteoarthritis with subchondral cysts No acute fractures. IMPRESSION: 1. Acute perforated appendicitis with surrounding abscess now shows definitive capsule with enhancement. Increasing perihepatic and pelvic fluid also noted. 2. Likely secondary focal enteritis noted in an adjacent small bowel loop Approved by: Luisito Ramachandran M.D. on 01/25/2024 at 12:55
[2024-01-25] MEDS: SODIUM CHLORIDE 0.9% 1,000 ML 1000 ML IV (11:24)
[2024-01-25] MEDS: ACETAMINOPHEN IV 1,000 MG/100 ML VIAL 400 MG IV (11:25)
--- NOTE | 2024-01-25 11:29 | ED.GENADULT ---
HPI - General Adult General Chief complaint: Abdominal Pain Stated complaint: ABD pain, Time Seen by Provider: 01/25/24 10:42 Source: patient Mode of arrival: Ambulatory Limitations: no limitations History of Present Illness HPI narrative: Patient is a 73-year-old female he was seen here in the emergency department last week for abdominal discomfort. Was diagnosed with what appeared to be a perforated appendicitis. She was admitted to the hospital under the general surgery service. According to the note she was discharged home with IV antibiotics for a delayed appendectomy. She has been taking the pain medication in the antibiotics at home however this morning she woke up with increase/worsening right lower quadrant abdominal pain. Is also having fevers. She contacted the General surgery Department who advised that she come back to the emergency department for evaluation. Is having some nausea. No chest pain or shortness of breath. No urinary symptoms. Related Data Home Medications Medication Instructions Recorded Confirmed propranolol 120 mg capsule,24 120 mg PO BEDTIME 01/18/21 01/20/24 hr,extended release hydrocodone 7.5 mg-acetaminophen 1 tab PO BEDTIME PRN Pain (Scale 11/14/21 01/20/24 325 mg tablet Score 4-6) gabapentin 300 mg capsule 600 mg PO BEDTIME 01/20/24 01/20/24 raloxifene 60 mg tablet 60 mg PO BEDTIME for osteoporosis 01/20/24 01/20/24 Previous Rx's Medication Instructions Recorded levetiracetam 500 mg tablet 500 mg PO BID #180 tabs 09/06/16 (Keppra) levothyroxine 25 mcg tablet 25 mcg PO QAM #90 tabs 10/22/23 sertraline 50 mg tablet 50 mg PO DAILY #90 tabs 10/22/23 amoxicillin 500 mg-potassium 1 tab PO BID #10 tabs 01/22/24 clavulanate 125 mg tablet (Augmentin) oxycodone 5 mg tablet 5 mg PO Q6H PRN pain #10 tabs 01/22/24 Allergies Allergy/AdvReac Type Severity Reaction Status Date / Time trazodone [TRAZODONE] Allergy Mild Nares Verified 01/20/24 19:17 swelled NSAIDS (Non-Steroidal AdvReac Intermediate Verified 01/20/24 21:55 Anti-Inflamma Review of Systems Review of Systems ROS Unobtainable: All systems reviewed & are unremarkable except as noted in HPI and below Patient History Medical History Atrophic vulvovaginitis History of anemia Surgical History H/O wisdom tooth extraction H/O total hip arthroplasty H/O section History of carpal tunnel release Social History household members: none Smoking Status: Never smoker alcohol intake: never Smoking Status: Never smoker Substance Use Type: does not use Exam Initial Vital Signs Initial Vital Signs: Vital Signs Temperature 102.1 F H 01/25/24 10:55 Pulse Rate 111 H 01/25/24 10:55 Respiratory Rate 18 01/25/24 10:55 Blood Pressure 112/55 L 01/25/24 10:55 Pulse Oximetry 98 01/25/24 10:55 Oxygen Delivery Method Room Air 01/25/24 10:55 Const General: cooperative and No ill appearing HENMT Head: normal to inspection and normocephalic Resp Effort & Inspection: normal respiratory effort Auscultation: clear to auscultation bilaterally Cardio Rate: tachycardic Rhythm: regular rhythm GI Inspection: normal to inspection and non-distended Palpation: soft, No firm, guarding and tender Skin General: no rashes or lesions noted Neuro General: patient alert, patient awake, patient oriented x3 and moves all extremities Extrem General: No edema Course Orders Ordered: ED Orders 01/25/24 11:07 XR chest 1V Stat 01/25/24 11:09 CT abdomen pelvis w con Stat EKG-12 Lead Stat 01/25/24 11:24 Complete Blood Count AUTO DIFF Stat Comprehensive Metabolic Panel Stat Lactate (Lactic Acid) Stat Lipase Stat Procalcitonin Stat 01/25/24 11:30 Blood Culture Stat 01/25/24 12:49 Education, smoking cessation ONGOING 01/25/24 13:20 Consult to General Surgery Stat 01/25/24 13:30 Basic Metabolic Panel DAILY Complete Blood Count AUTO DIFF DAILY Celecoxib (Celecoxib 100 Mg Capsule) 200 mg PO BID HELLEN Heparin Sodium (Porcine) (Heparin 5,000 Unit/Ml Vial) 5,000 unit SUBCUT BID HELLEN Hydromorphone HCl (Hydromorphone 0.5 Mg Inj) 0.5 mg IV Q2H PRN PRN Reason: Pain, Severe (7-10) Sodium Chloride (Normal Saline 0.45%) 1,000 mls @ 100 mls/hr IV CONT HELLEN Levetiracetam (Levetiracetam 250 Mg Tablet) 500 mg PO BID HELLEN Naloxone HCl (Naloxone 0.4 Mg/Ml Vial) 0.2 mg IV Q2MIN PRN PRN Reason: Opiate Reversal Oxycodone HCl (Oxycodone 5 Mg/5 Ml Oral Solution) 5 mg PO Q4HR PRN PRN Reason: Pain, Moderate (4-6) Discontinued Medications Sodium Chloride (Normal Saline 0.9%) 1,000 mls @ 1,000 mls/hr IV BOLUS ONE Stop: 01/25/24 12:07 Last Infusion: 01/25/24 12:26 Dose: Infused Documented By: Admin: 01/25/24 11:24 Dose: 1,000 mls/hr Documented By: REILLY Acetaminophen (Ofirmev) 1,000 mg in 100 mls @ 400 mls/hr IV NOW ONE Stop: 01/25/24 11:22 Last Infusion: 01/25/24 12:26 Dose: Infused Documented By: Admin: 01/25/24 11:25 Dose: 400 mls/hr Documented By: REILLY Ceftriaxone Sodium 1,000 mg/ (Sodium Chloride) 100 mls @ 200 mls/hr IV NOW ONE Stop: 01/25/24 11:09 Last Infusion: 01/25/24 13:17 Dose: Infused Documented By: Admin: 01/25/24 12:15 Dose: 200 mls/hr Documented By: YOKASTA Piperacillin Sod/Tazobactam (Sod 4.5 gm/ Sodium Chloride) 100 mls @ 200 mls/hr IV NOW ONE Stop: 01/25/24 12:58 Morphine Sulfate (Morphine 4 Mg/Ml Inj) 4 mg IV NOW ONE Stop: 01/25/24 11:30 Last Admin: 01/25/24 11:34 Dose: 4 mg Documented By: REILLY Ondansetron HCl (Ondansetron 4 Mg/2 Ml Inj) 4 mg IV NOW ONE Stop: 01/25/24 11:30 Last Admin: 01/25/24 11:34 Dose: 4 mg Documented By: REILLY Vital Signs Vital signs: Vital Signs - 8 hr 01/25/24 10:55 01/25/24 11:32 01/25/24 11:33 Temperature 102.1 F H Pulse Rate 111 H 96 H 97 H Respiratory Rate 18 Blood Pressure 112/55 L Pulse Oximetry 98 97 99 Oxygen Delivery Method Room Air 01/25/24 11:33 01/25/24 11:59 01/25/24 11:59 Temperature Pulse Rate 102 H Respiratory Rate Blood Pressure 118/56 L 120/56 L Pulse Oximetry 94 Oxygen Delivery Method 01/25/24 12:00 01/25/24 12:00 01/25/24 12:26 Temperature Pulse Rate 95 H 91 H Respiratory Rate Blood Pressure 113/55 L Pulse Oximetry 98 94 Oxygen Delivery Method 01/25/24 12:26 01/25/24 12:30 01/25/24 12:30 Temperature Pulse Rate 89 Respiratory Rate Blood Pressure 110/53 L 103/51 L Pulse Oximetry 94 Oxygen Delivery Method 01/25/24 13:00 01/25/24 13:00 Temperature Pulse Rate 89 Respiratory Rate Blood Pressure 102/53 L Pulse Oximetry 94 Oxygen Delivery Method Medical Decision Making Medical Records Medical records reviewed: Yes I reviewed the patient's medical records. Lab Data Lab results reviewed: Yes I reviewed the patient's lab results. 01/25/24 13:30 01/25/24 11:24 Labs: Lab Results 01/25/24 Range/Units 11:24 WBC 15.6 H (4.5-11.0) X10^3/uL RBC 3.55 L (4.0-5.2) X10^6/uL Hgb 10.3 L (12.0-16.0) g/dL Hct 30.6 L (36-46) % MCV 86.2 (80-100) fL MCH 29.0 (26-34) PG MCHC 33.6 (30-36) % RDW 13.5 (11.6-14.8) % Plt Count 267 (150-400) X10^3/uL Neut % (Auto) 83.4 H (50-75) % Lymph % (Auto) 8.7 L (25-40) % [place] % (Auto) 7.2 (3-14) % Eos % (Auto) 0.0 L (2-4) % Baso % (Auto) 0.7 (0-2) % Neut # (Auto) 39591 H (2456-5573) /uL Lymph # (Auto) 1400 (2621-8622) /uL [place] # (Auto) 1100 H (0-900) /uL Eos # (Auto) 0 (0-450) /uL Baso # (Auto) 100 (0-100) /uL Sodium 136 L (137-145) mmol/L Potassium 3.6 (3.4-5.1) mmol/L Chloride 100 (98-107) mmol/L Carbon Dioxide 32 (22-32) mmol/L BUN 7 (7-17) mg/dL Creatinine 0.83 (0.52-1.04) mg/dL Estimated GFR > 60 (>60) mL/min BUN/Creatinine Ratio 8.4 (6-22) Glucose 123 H (80-110) mg/dL Lactate 0.8 (0.7-2.1) mmol/L Calcium 8.9 (8.4-10.2) mg/dL Total Bilirubin 1.0 (0.2-1.3) mg/dL AST 26 (14-36) IU/L ALT 11 (<35) IU/L Alkaline Phosphatase 65 (38-126) U/L Total Protein 6.8 (6.3-8.2) g/dL Albumin 3.9 (3.5-5.0) g/dL Globulin 2.9 (1.7-4.1) g/dL Albumin/Globulin Ratio 1.3 (1.0-2.8) Lipase 22 L (23-300) U/L Procalcitonin 5.31 H (<0.5) ng/mL Urine Dip Bedside Urine Glucose Negative Bedside Urine Bilirubin - Negative Bedside Urine Ketone ++ 40 Urine Specific [place] 1.015 Bedside Urine Occult Blood - Negative Bedside Urine pH 6.0 Bedside Urine Protein +/- 15 Bedside Urine Urobilinogen +/- 1mg Bedside Urine Nitrite - Negative Bedside Urine Leukocytes - Negative Esterase Point of care testing: Urine Dip Bedside Urine Glucose Negative Bedside Urine Bilirubin - Negative Bedside Urine Ketone ++ 40 Urine Specific [place] 1.015 Bedside Urine Occult Blood - Negative Bedside Urine pH 6.0 Bedside Urine Protein +/- 15 Bedside Urine Urobilinogen +/- 1mg Bedside Urine Nitrite - Negative Bedside Urine Leukocytes - Negative Esterase Imaging Data Chest x-ray: Radiologist's Impression: PROCEDURE: XR CHEST 1V INDICATIONS: Eval for pneumonia TECHNIQUE: One view of the chest was acquired. COMPARISON: [facility], , CHEST 1 VIEW, 12/03/2017, 0:47. FINDINGS: Surgical changes and devices: None. Lungs and pleura: Lungs are clear. No pleural effusions or pneumothorax. Mediastinum: Mediastinal contours appear normal. Heart size is normal. Bones and chest wall: No suspicious bony lesions. Overlying soft tissues appear unremarkable. IMPRESSION: No acute cardiopulmonary abnormality is seen ECG Data Attestation: I personally reviewed and interpreted this ECG as follows: Interpretation: Sinus rhythm Ventricular rate 95 Normal axis Normal QRS Normal QTC Nonspecific ST T wave changes MDM Narrative Medical decision making narrative: Patient has known appendicitis. She was admitted to the hospital about a week ago and then discharged with a plan for antibiotics and a delayed appendectomy however the patient returns febrile, tachycardic. Has not been hypotensive. Blood cultures were obtained although she has been on antibiotics for the past several days. Dr. Gomez with General surgery is aware with the patient and will admit for further evaluation and most likely surgery tomorrow. Discussed all this with the patient. She expressed understanding and agreement with plan. Discharge Plan Departure Patient Disposition: Admitted As Inpatient Clinical Impression: Acute appendicitis Admit Date/Time: 01/25/24 13:20 Admit Provider: Lisa Gomez
[2024-01-25] MEDS: ONDANSETRON 4 MG/2 ML INJ IV (11:34)
[2024-01-25] MEDS: MORPHINE 4 MG/ML INJ IV (11:34)
[2024-01-25 11:36] LABS: Add Manual Diff / Slide Review NO; Basophils Absolute Auto 100 /uL (0-100); Basophils Percent Auto 0.7 % (0-2); Eosinophils Absolute Auto 0 /uL (0-450); Hematocrit 30.6 % (36-46); Hemoglobin 10.3 g/dL (12.0-16.0); Lymphocytes Absolute Auto 1400 /uL (1100-4500); Lymphocytes Percent Auto 8.7 % (25-40); Mean Corpuscular HGB Conc 33.6 % (30-36); Mean Corpuscular Volume 86.2 fL (80-100); Monocytes Absolute Auto 1100 /uL (0-900); Monocytes Percent Auto 7.2 % (3-14); Neutrophils Absolute Auto 13000 /uL (1500-7000); Neutrophils Percent Auto 83.4 % (50-75); Platelet Count 267 X10^3/uL (150-400); Red Blood Cell Count 3.55 X10^6/uL (4.0-5.2); Red Cell Distribution Width 13.5 % (11.6-14.8); White Blood Cell Count 15.6 X10^3/uL (4.5-11.0)
[2024-01-25 11:57] LABS: Alanine Aminotransferase 11 IU/L (<35); Albumin 3.9 g/dL (3.5-5.0); Albumin Globulin Ratio 1.3 (1.0-2.8); Alkaline Phosphatase 65 U/L (38-126); Aspartate Aminotransferase 26 IU/L (14-36); BUN Creatinine Ratio 8.4 (6-22); Blood Urea Nitrogen 7 mg/dL (7-17); Calcium 8.9 mg/dL (8.4-10.2); Carbon Dioxide 32 mmol/L (22-32); Chloride 100 mmol/L (98-107); Estimated Glomerular Filt Rate > 60 mL/min (>60); Globulin 2.9 g/dL (1.7-4.1); Glucose 123 mg/dL (80-110); HEMOLYSIS < 15 (0-50); Lipase 22 U/L (23-300); Potassium 3.6 mmol/L (3.4-5.1); Sodium 136 mmol/L (137-145); Total Protein 6.8 g/dL (6.3-8.2)
[2024-01-25 11:58] LABS: Lactate (Lactic Acid) 0.8 mmol/L (0.7-2.1)
[2024-01-25 12:13] LABS: Procalcitonin 5.31 ng/mL (<0.5)
[2024-01-25] MEDS: cefTRIAXone 1,000 MG in SODIUM CHLORIDE 0.9% 100 ML 200 MG IV (12:15)
[2024-01-25 13:42] LABS: Add Manual Diff / Slide Review NO; Basophils Absolute Auto 0 /uL (0-100); Basophils Percent Auto 0.3 % (0-2); Eosinophils Absolute Auto 0 /uL (0-450); Hematocrit 27.1 % (36-46); Lymphocytes Absolute Auto 1500 /uL (1100-4500); Lymphocytes Percent Auto 9.6 % (25-40); Mean Corpuscular HGB Conc 33.1 % (30-36); Mean Corpuscular Hemoglobin 28.9 PG (26-34); Mean Corpuscular Volume 87.4 fL (80-100); Monocytes Absolute Auto 1200 /uL (0-900); Monocytes Percent Auto 8.2 % (3-14); Neutrophils Absolute Auto 12500 /uL (1500-7000); Neutrophils Percent Auto 81.9 % (50-75); Platelet Count 222 X10^3/uL (150-400); Red Cell Distribution Width 13.7 % (11.6-14.8); White Blood Cell Count 15.3 X10^3/uL (4.5-11.0)
[2024-01-25 13:54] LABS: BUN Creatinine Ratio 7.9 (6-22); Blood Urea Nitrogen 6 mg/dL (7-17); Calcium 8.1 mg/dL (8.4-10.2); Carbon Dioxide 28 mmol/L (22-32); Chloride 103 mmol/L (98-107); Estimated Glomerular Filt Rate > 60 mL/min (>60); Glucose 107 mg/dL (80-110); HEMOLYSIS < 15 (0-50); Potassium 3.6 mmol/L (3.4-5.1); Sodium 135 mmol/L (137-145)
[2024-01-25] MEDS: SODIUM CHLORIDE 0.45% 1,000 ML 100 ML IV (14:16)
[2024-01-25] MEDS: HEPARIN 5,000 UNIT/ML VIAL 5000 UNIT SUBCUT ×2 (14:16→20:29)
[2024-01-25] MEDS: OXYCODONE IR 5 MG TABLET PO ×3 (15:22→23:27)
[2024-01-25 15:38] LABS: MRSA (Nasal) PCR NOT DETECTED (Not Detect)
--- NOTE | 2024-01-25 17:37 | PC.NURSE ---
Admit note: Admitted to room 226, awake alert and pleasantly cooperative. Clear liquid diet until MN for sx on 01/25. Oriented to room, environment, and plan of care. Independently ambulatory, voiding, calls appropriately for staff assist. Dr. Rodgers at bedside this evening.
--- NOTE | 2024-01-25 17:54 | P.HP_ITS ---
History of Present Illness History of Present Illness Date Patient Seen: 01/25/24 Time Patient Seen: 17:54 Chief complaint: ABD pain, Narrative: Failed medical management or ruptured appendicitis with abscess [facility] Medical History Atrophic vulvovaginitis History of anemia Surgical History H/O wisdom tooth extraction H/O total hip arthroplasty H/O section History of carpal tunnel release Social History household members: none Smoking Status: Never smoker alcohol intake: never Meds Home Medications and Allergies Home Medications Medication Instructions Recorded Confirmed Type levetiracetam 500 mg tablet 500 mg PO BID #180 tabs 09/06/16 01/25/24 Rx (Keppra) propranolol 120 mg capsule,24 120 mg PO BEDTIME 01/18/21 01/25/24 History hr,extended release hydrocodone 7.5 mg-acetaminophen 1 tab PO BEDTIME PRN Pain (Scale 11/14/21 01/25/24 History 325 mg tablet Score 4-6) levothyroxine 25 mcg tablet 25 mcg PO QAM #90 tabs 10/22/23 01/25/24 Rx sertraline 50 mg tablet 50 mg PO DAILY #90 tabs 10/22/23 01/25/24 Rx gabapentin 300 mg capsule 600 mg PO BEDTIME 01/20/24 01/25/24 History raloxifene 60 mg tablet 60 mg PO BEDTIME for osteoporosis 01/20/24 01/25/24 History amoxicillin 500 mg-potassium 1 tab PO BID #10 tabs 01/22/24 01/25/24 Rx clavulanate 125 mg tablet (Augmentin) Allergies Allergy/AdvReac Type Severity Reaction Status Date / Time trazodone [TRAZODONE] Allergy Mild Nares Verified 01/20/24 19:17 swelled NSAIDS (Non-Steroidal AdvReac Intermediate Verified 01/20/24 21:55 Anti-Inflamma Review of Systems Review of Systems ROS: Yes All systems reviewed with the patient and are negative except as otherwise documented Exam Vital Signs (past 8 hours): - 01/25/24 10:55 01/25/24 11:32 01/25/24 11:33 Temperature 102.1 F H Pulse Rate 111 H 96 H 97 H Respiratory Rate 18 Blood Pressure 112/55 L Pulse Oximetry 98 97 99 Oxygen Delivery Method Room Air Oxygen Flow Rate 01/25/24 11:33 01/25/24 11:59 01/25/24 11:59 Temperature Pulse Rate 102 H Respiratory Rate Blood Pressure 118/56 L 120/56 L Pulse Oximetry 94 Oxygen Delivery Method Oxygen Flow Rate 01/25/24 12:00 01/25/24 12:00 01/25/24 12:26 Temperature Pulse Rate 95 H 91 H Respiratory Rate Blood Pressure 113/55 L Pulse Oximetry 98 94 Oxygen Delivery Method Oxygen Flow Rate 01/25/24 12:26 01/25/24 12:30 01/25/24 12:30 Temperature Pulse Rate 89 Respiratory Rate Blood Pressure 110/53 L 103/51 L Pulse Oximetry 94 Oxygen Delivery Method Oxygen Flow Rate 01/25/24 13:00 01/25/24 13:00 01/25/24 13:30 Temperature Pulse Rate 89 84 Respiratory Rate Blood Pressure 102/53 L Pulse Oximetry 94 98 Oxygen Delivery Method Oxygen Flow Rate 01/25/24 13:33 01/25/24 13:33 01/25/24 13:55 Temperature 100.1 F H Pulse Rate 90 92 H Respiratory Rate 20 Blood Pressure 111/55 L 119/58 L Pulse Oximetry 95 97 Oxygen Delivery Method Oxygen Flow Rate 0 Oxygen Delivery Method Room Air Oxygen Flow Rate 0 Const General: cooperative, No acute distress and ill appearing Nutritional Appearance: average body habitus HENMT Head: normocephalic and atraumatic Eyes General: appearance normal, both eyes and all related structures Sclera: sclerae normal Neck Neck: trachea midline and No JVD Resp Effort & Inspection: normal respiratory effort and able to speak in complete sentences Cardio Rate: tachycardic Rhythm: regular rhythm GI Inspection: distended Palpation: soft and tender (lower abdominal ) Skin General: No turgor normal and atrophy Neuro General: patient alert, patient awake and patient oriented x3 Cognition: normal cognition Speech: speech normal Psych Appearance: grossly normal Mental Status: mental status grossly normal Affect: normal affect Judgment: judgment good Objective Labs 01/25/24 13:30 01/25/24 13:30 Labs: Laboratory Results - last 24 hr 01/25/24 01/25/24 01/25/24 11:24 13:30 14:22 WBC 15.6 H 15.3 H RBC 3.55 L 3.10 L Hgb 10.3 L 9.0 L Hct 30.6 L 27.1 L MCV 86.2 87.4 MCH 29.0 28.9 MCHC 33.6 33.1 RDW 13.5 13.7 Plt Count 267 222 Neut % (Auto) 83.4 H 81.9 H Lymph % (Auto) 8.7 L 9.6 L [place] % (Auto) 7.2 8.2 Eos % (Auto) 0.0 L 0.0 L Baso % (Auto) 0.7 0.3 Neut # (Auto) 63985 H 12809 H Lymph # (Auto) 1400 1500 [place] # (Auto) 1100 H 1200 H Eos # (Auto) 0 0 Baso # (Auto) 100 0 Sodium 136 L 135 L Potassium 3.6 3.6 Chloride 100 103 Carbon Dioxide 32 28 BUN 7 6 L Creatinine 0.83 0.76 Estimated GFR > 60 > 60 BUN/Creatinine Ratio 8.4 7.9 Glucose 123 H 107 Lactate 0.8 Calcium 8.9 8.1 L Total Bilirubin 1.0 AST 26 ALT 11 Alkaline Phosphatase 65 Total Protein 6.8 Albumin 3.9 Globulin 2.9 Albumin/Globulin Ratio 1.3 Lipase 22 L Procalcitonin 5.31 H Nasal Screen MRSA (PCR) Not detected Assessment & Plan Assessment & Plan narrative: Failed medical management of perforated appendicitis. Plan: Rehydration IV antibiotics Stop celebrex at patient's requiest due to kidney disease Daily labs OR tomorrow for lap appy and wash out.
[2024-01-25] MEDS: PIPERACILLIN/TAZO 3.375 GM in SODIUM CHLORIDE 0.9% 100 ML IV (18:31)
[2024-01-25] MEDS: GABAPENTIN 300 MG CAPSULE PO ×2 (18:31→20:28)
[2024-01-25] MEDS: levETIRAcetam 250 MG TABLET 500 MG PO (20:28)
[2024-01-25] MEDS: ACETAMINOPHEN 325 MG TABLET 650 MG PO (20:29)
[2024-01-26] VITALS (38 sets, daily range): BP systolic 94–120; BP diastolic 49–64; PULSE 78–99; RESP 10–18; TEMP 36.8–37.9; O2SAT 91–100; BMI 23.3
--- NOTE | 2024-01-26 | PATH_ITS ---
[facility] Accession Number: [id number] No. of containers..01 Tissue . 01 Material submitted: . appendix - APPENDIX . 01 Diagnosis: APPENDIX, APPENDECTOMY: Subacute appendicitis and acute suppurative serositis. [facility] 02/02/2024 1215 Local . 01 Electronically signed: . Jennifer Parada MD, Pathologist NPI- [id number] . 01 Gross description: . The specimen is received in formalin labeled with two patient identifiers and appendix, and is a 5.0 x 1.0 x 0.8 cm vermiform appendix which has a 1.4 cm linear staple line at the resection margin; the resection margin is inked black. The serosal surface has a marked amount of diffuse fibrous adhesions; the serosal surface is inked blue. There is also a 2.0 x 1.0 x 0.6 cm attached, diffusely indurated, and fibrotic mesoappendix. The wall is diffusely white, fibrotic, and thickened measuring up to 0.4 cm in thickness. There is a 0.4 cm stellate lumen. Wellness Nurse sections are submitted in cassette A1 to include one-half tip of the appendix resection margin and complete crosss-section. ([id number]) . The remaining specimen is submitted in cassettes A2-A5. ([id number]) /[facility] 01/30/2024 1826 Local . 01 Pathologist provided ICD-10: K35.80 . 01 CPT . 062864 Specimen Comment: A courtesy copy of this report has been sent to [phone] Performed at: [address], [place], [place] [id number] MD Daniel Blanchard MD Phone: [phone]
[2024-01-26] MEDS: SODIUM CHLORIDE 0.45% 1,000 ML 100 ML IV ×3 (00:34→23:08)
[2024-01-26] MEDS: PIPERACILLIN/TAZO 3.375 GM in SODIUM CHLORIDE 0.9% 100 ML IV ×3 (02:20→16:58)
[2024-01-26] MEDS: OXYCODONE IR 5 MG TABLET PO ×5 (04:37→23:06)
[2024-01-26] MEDS: GABAPENTIN 300 MG CAPSULE PO ×3 (08:03→20:31)
[2024-01-26] MEDS: levETIRAcetam 250 MG TABLET 500 MG PO ×2 (08:03→20:31)
--- NOTE | 2024-01-26 11:03 | CM.DANOTE ---
DCP Assessment Note Pt is a 73yo F here with acute appendicitis. Pt was here 01/20-01/22/24 with similar concerns, dc'd home with antibiotics. Here now with increasing pain. PCP Maryann Miller Payer Medicare and [employer] TECHNOLOGY RECRUITER reviewed EMR. Per RN, ean gill scheduled for today at 1100. Per chart review, pt lives on [facility] alone. TECHNOLOGY RECRUITER met with pt and son Casey ([phone]) in room. Pt lives alone indep/no DME at baseline. Son flew up from [place] for surg and will be here until to assist pt. Pt was told by surgeon she'll likely be here for another 3-4 days. If son leaves before pt discharges, her friend from [place] plans to come drive her home. Pt can either stay with friend or sister on [place] after dc if she needs additional assistance post op. Friend will try and get reservations, CM team will follow closely if ferry pass needed/recommended. Pt and son deny CM needs at this time. Plan: surgical intervention scheduled for today. Pt will either dc home with son or friend to transport, CM team will follow for priority pass need. SRIKANTH Crowley Discharge Planning/Care Management CM Discharge Assessment Start: 01/26/24 11:00 Freq: Status: Active Protocol: Document 01/26/24 11:01 (Rec: 01/26/24 11:03 [email or web address]) Discharge Planning Assessment Assigned [employer] Dyer SRIKANTH Xavier Advance Directives? No History Provided By Patient,Medical Record Has Patient been admitted in last 30 Yes days? Comment pt here 01/21/24-01/22/24 Prior Living Arrangements House Household Members none Type of transporation used prior to Drives own vehicle admit Independent with ADL's Yes Is patient alert and oriented? Yes Discharge Plan Home Transportation Arrangement Friend or son Referrals Initiated None needed Whiteboard Updated in Patient Room with Yes name and ext. # of [employer] Dyer Review Status In Process Please Provide Date Initial DC 01/26/24 Assessment Was Performed Next Review Type Continued Stay Review
--- NOTE | 2024-01-26 11:47 | PM.PREOP ---
Pre-operative Note Interval Note History & Physical reviewed/Exam performed by Physician: Yes Changes to H&P: Yes H&P completed within 30 days and has changed as indicated here:: Awaiting labs, pain is moderately controlled but patient remains tachy. Will proceed with Lap appy with the possibility to open.
[2024-01-26 12:11] LABS: Add Manual Diff / Slide Review NO; Basophils Absolute Auto 100 /uL (0-100); Basophils Percent Auto 0.5 % (0-2); Eosinophils Absolute Auto 0 /uL (0-450); Eosinophils Percent Auto 0.3 % (2-4); Hematocrit 25.4 % (36-46); Hemoglobin 8.4 g/dL (12.0-16.0); Lymphocytes Absolute Auto 1300 /uL (1100-4500); Lymphocytes Percent Auto 8.9 % (25-40); Mean Corpuscular Hemoglobin 28.7 PG (26-34); Mean Corpuscular Volume 86.9 fL (80-100); Monocytes Absolute Auto 900 /uL (0-900); Monocytes Percent Auto 6.4 % (3-14); Neutrophils Absolute Auto 12100 /uL (1500-7000); Neutrophils Percent Auto 83.9 % (50-75); Platelet Count 226 X10^3/uL (150-400); Red Blood Cell Count 2.93 X10^6/uL (4.0-5.2); Red Cell Distribution Width 13.7 % (11.6-14.8); White Blood Cell Count 14.4 X10^3/uL (4.5-11.0)
[2024-01-26 12:16] LABS: Alanine Aminotransferase 6 IU/L (<35); Albumin 3.1 g/dL (3.5-5.0); Albumin Globulin Ratio 1.3 (1.0-2.8); Alkaline Phosphatase 56 U/L (38-126); Aspartate Aminotransferase 18 IU/L (14-36); BUN Creatinine Ratio 7.7 (6-22); Bilirubin Total 0.8 mg/dL (0.2-1.3); Blood Urea Nitrogen 7 mg/dL (7-17); Calcium 7.9 mg/dL (8.4-10.2); Carbon Dioxide 26 mmol/L (22-32); Chloride 103 mmol/L (98-107); Estimated Glomerular Filt Rate > 60 mL/min (>60); Globulin 2.4 g/dL (1.7-4.1); Glucose 82 mg/dL (80-110); HEMOLYSIS < 15 (0-50); Potassium 3.2 mmol/L (3.4-5.1); Sodium 133 mmol/L (137-145); Total Protein 5.5 g/dL (6.3-8.2)
[2024-01-26] MEDS: HYDROMORPHONE 0.5 MG INJ IV (12:36)
[2024-01-26] MEDS: LACTATED RINGERS 1,000 ML 42 ML IV (13:13)
--- NOTE | 2024-01-26 13:15 | SUR.OPER ---
Supine on padded OR bed, head on pillow, left arm padded and tucked at side, right arm on padded armboard. legs uncrossed, safety belt at thigh, tape over blanket over lower legs .
[2024-01-26] MEDS: BUPIVACAINE 0.25% (PF) 30 ML, EPINEPHrine 0.15 MG INJ (13:36)
--- NOTE | 2024-01-26 14:37 | P.OP_ITS ---
Operative Date/Time/Diagnoses Date of procedure: 01/26/24 Time of procedure: 14:37 Pre-op diagnosis: Ruptured appendicitis Post-op diagnosis: same Procedure & Clinicians Procedure: Laparoscopic appendectomy Same procedure as scheduled: Yes Indications: Failure of medical management of a ruptured appendicitis Surgeon: Lisa Gomez Click Yes if Unassisted: Yes Anesthesia Type: General and Local Operative Notes Findings: What appears to be a ruptured appendicitis. There was fallopian tube with fimbriae in direct contact with the abscess as well but the tube was intact. The appendix itself was broken in pieces. Closure Type: primary Specimen(s): other (Appendix) Applied: drain(s) (15 [place] ELMA drain) Estimated Blood Loss (mL): 30 Blood products transfused: none Procedure in detail: Preop diagnosis: Ruptured appendicitis with abscess Postop diagnosis: Same Operative procedure: Laparoscopic appendectomy with washout Surgeon: Yeimy Gomez MD Findings: Inflammation in the pelvis with a stump only visible for the appendix, direct association with the fallopian tube on the right. Fluid in the pelvis was free fluid, fluid around the liver was free fluid as well. Procedure: Patient placed in a supine position. Prepped and draped in sterile fashion to expose her abdomen. Infraumbilical port site was placed using open technique a 12 mm port. Insufflation began all other ports were placed under di rect vision including a 5 mm port in the suprapubic area and a 5 mm port in the left lateral abdomen. With blunt dissection I was able to unroof the abscess and separate the fallopian tube on the right from the remnant of appendix. Care was taken to suction of the free fluid around the liver and pelvis prior to irrigation to a clear return. Appendiceal stump was dissected free and a blue load stapling device was used to amputate the appendix at the origin. I then placed the appendix into the Endo- Catch bag and pulled it through the infraumbilical port site intact. Surveyed the abdomen for hemostasis. And placed a 15 ELMA into the pelvis through an existing 5 mm port in the suprapubic area. This was sutured to the skin with a 3-0 nylon. I then removed all ports and began closure. Closure consisted of interrupted 0 Vicryl for fascial closure. Skin was closed with running 4-0 Vicryl. Steri- Strips and sterile dressings were placed. Patient was awakened, extubated, taken to recovery room in stable condition. Needle, instrument, sponge counts were correct. Blood loss: 30 mL Specimen: Appendix Complications: none Post-operative Condition: stable Disposition: PACU
[2024-01-26] MEDS: HYDROMORPHONE 1 MG INJ IV ×4 (14:53→15:27)
[2024-01-26] MEDS: ONDANSETRON 4 MG/2 ML INJ IV (14:58)
[2024-01-26] MEDS: predniSONE 20 MG TABLET PO (16:58)
--- NOTE | 2024-01-26 17:53 | PC.NURSE ---
Postop Note Patient arrived back to room 226 from PACU at approx 1600. Pt is alert but fatigued, oriented x3. Denies pain to abdomen but reports pain to pubic bone, pt reports she has had this pain before and that prednisone was the only thing that helped. Reported to Dr. Gomez and one time order for prednisone received and given to patient. Pt denies nausea but has very little appetite, encouraged to take in sips of fluid. Lap site x2 with gauze and ELMA site x1, small amount serosanguinous drainage noted. ELMA drain compressed and draining serosanguinous fluid. Up to bathroom, SBA, steady on feet, denied dizziness. Unable to void at this time, receiving IV fluids and slowly taking in POs. Call light within reach, using appropriately to make needs known.
[2024-01-26] MEDS: POTASSIUM CHLORIDE 20 MEQ TAB 40 MEQ PO (18:39)
[2024-01-26] MEDS: PROPRANOLOL 10 MG TABLET 60 MG PO (20:31)
[2024-01-27] MEDS: PIPERACILLIN/TAZO 3.375 GM in SODIUM CHLORIDE 0.9% 100 ML IV ×3 (00:54→17:52)
[2024-01-27] MEDS: POTASSIUM CHLORIDE 20 MEQ TAB 40 MEQ PO (00:54)
[2024-01-27 04:45] VITALS: BP 112/56; PULSE 77; RESP 16; TEMP 36.6; O2SAT 97
[2024-01-27] MEDS: OXYCODONE IR 5 MG TABLET PO ×4 (04:58→20:19)
[2024-01-27] MEDS: LEVOTHYROXINE 25 MCG TABLET PO (05:01)
[2024-01-27 05:25] LABS: Add Manual Diff / Slide Review NO; Basophils Absolute Auto 0 /uL (0-100); Basophils Percent Auto 0.1 % (0-2); Eosinophils Absolute Auto 0 /uL (0-450); Hematocrit 25.7 % (36-46); Hemoglobin 8.6 g/dL (12.0-16.0); Lymphocytes Absolute Auto 900 /uL (1100-4500); Mean Corpuscular HGB Conc 33.4 % (30-36); Mean Corpuscular Hemoglobin 28.7 PG (26-34); Mean Corpuscular Volume 85.8 fL (80-100); Monocytes Absolute Auto 500 /uL (0-900); Monocytes Percent Auto 3.1 % (3-14); Neutrophils Absolute Auto 14300 /uL (1500-7000); Neutrophils Percent Auto 90.8 % (50-75); Platelet Count 254 X10^3/uL (150-400); White Blood Cell Count 15.8 X10^3/uL (4.5-11.0)
[2024-01-27 05:41] LABS: BUN Creatinine Ratio 8.8 (6-22); Blood Urea Nitrogen 8 mg/dL (7-17); Calcium 8.2 mg/dL (8.4-10.2); Carbon Dioxide 24 mmol/L (22-32); Chloride 105 mmol/L (98-107); Estimated Glomerular Filt Rate > 60 mL/min (>60); Glucose 108 mg/dL (80-110); HEMOLYSIS < 15 (0-50); Potassium 4.2 mmol/L (3.4-5.1); Sodium 134 mmol/L (137-145)
[2024-01-27 08:00] VITALS: BP 97/55; PULSE 83; RESP 16; TEMP 36.8; O2SAT 94
[2024-01-27] MEDS: SERTRALINE 50 MG TABLET PO (08:42)
[2024-01-27] MEDS: GABAPENTIN 300 MG CAPSULE PO ×2 (08:42→20:19)
[2024-01-27] MEDS: PROPRANOLOL 10 MG TABLET 60 MG PO ×2 (08:42→20:20)
[2024-01-27] MEDS: levETIRAcetam 250 MG TABLET 500 MG PO ×2 (08:42→20:19)
[2024-01-27] MEDS: SODIUM CHLORIDE 0.45% 1,000 ML 100 ML IV (08:52)
--- NOTE | 2024-01-27 11:28 | CM.DPNOTE ---
DCP Note FOUNTAIN WAITRESS/WAITER reviewed EMR. Pt is POD1 from lap appy with washout. FOUNTAIN WAITRESS/WAITER met with pt in room. Pt resting in bed but reports feeling much better. Pending on day of dc, either son or friend will transport home to [place]. Pt was told originally by surgeon she would stay 3-4days after surg for IV abx. (would put dc day either at 01/28 or 01/29). Pt is anxious about ferry pass/reservation. FOUNTAIN WAITRESS/WAITER reviewed priority boarding pass guidelines/policy. Pt will attempt to make reservations based on anticipated dc date but is hopeful for medical priority boarding pass. Deny other CM needs. Plan: anticipate dc home or Friday, likely with friend to transport or [place]. CM team will follow closely for priority boarding pass need/any additional DCP needs that arise. SRIKANTH Crowley
[2024-01-27 12:00] VITALS: BP 124/58; PULSE 88; RESP 17; TEMP 36.8; O2SAT 98
--- NOTE | 2024-01-27 12:53 | P.PN_ITS ---
Subjective Subjective Date Patient Seen: 01/27/24 Time Patient Seen: 12:53 Interval history: S/P lap appy for ruptured appendicitis with abscess. Exam Vital Signs (past 8 hours): - 01/27/24 08:00 01/27/24 08:30 01/27/24 12:00 Temperature 98.3 F 98.2 F Pulse Rate 83 88 Respiratory Rate 16 17 Blood Pressure 97/55 L 124/58 L Pulse Oximetry 94 98 Oxygen Delivery Method Room Air Oxygen Flow Rate 0 0 Oxygen Delivery Method Room Air Oxygen Flow Rate 0 Narrative Exam Narrative: WBC 15, drain is serous. No tachycardia or fever. Feels better but no appetite. Objective Labs 01/27/24 04:30 01/27/24 04:30 Labs: Laboratory Results - last 24 hr 01/27/24 04:30 WBC 15.8 H RBC 3.00 L Hgb 8.6 L Hct 25.7 L MCV 85.8 MCH 28.7 MCHC 33.4 RDW 14.0 Plt Count 254 Neut % (Auto) 90.8 H Lymph % (Auto) 6.0 L [place] % (Auto) 3.1 Eos % (Auto) 0.0 L Baso % (Auto) 0.1 Neut # (Auto) 68918 H Lymph # (Auto) 900 L [place] # (Auto) 500 Eos # (Auto) 0 Baso # (Auto) 0 Sodium 134 L Potassium 4.2 Chloride 105 Carbon Dioxide 24 BUN 8 Creatinine 0.91 Estimated GFR > 60 BUN/Creatinine Ratio 8.8 Glucose 108 Calcium 8.2 L [facility] Medical History (Updated 01/26/24 @ 11:04 by Lisa Gomez MD) Encounter for hepatitis C screening test for low risk patient Abdominal pain Screening for cardiovascular condition Proteinuria Hypothyroidism Zoster History of seizure Elevated HDL Arthritis of sacroiliac joint of both sides Pubic bone pain Personal history of colonic polyps 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 Vulvar atrophy Fibromyalgia Depression Swallowing problem Chronic migraine without aura with status migrainosus, not intractable Age-related osteoporosis without current pathological fracture Lichen sclerosus of female genitalia Degenerative joint disease Atrophic vulvovaginitis History of anemia Surgical History H/O wisdom tooth extraction H/O total hip arthroplasty H/O section History of carpal tunnel release Social History household members: none Smoking Status: Never smoker alcohol intake: never Assessment & Plan Post-op Postoperative Procedures: Procedures Operation Date: 01/26/24 11:00 Actual Procedure Side Surgeon p Laparoscopic Appendectomy Lisa Gomez MD Postoperative status: doing well Postoperative plan: routine post-op care and advance diet Postoperative plan narrative: Will wait until WBC is normal before switching to po antibiotics.
[2024-01-27] MEDS: ONDANSETRON 4 MG/2 ML INJ IV (14:36)
[2024-01-27 16:00] VITALS: BP 107/58; PULSE 66; RESP 15; TEMP 37.3; O2SAT 98
[2024-01-27] MEDS: SODIUM CHLORIDE 0.9% FLUSH 10 ML IV ×2 (17:52→20:20)
[2024-01-27] MEDS: SODIUM CHLORIDE 0.9% 250 ML 21 ML IV (17:52)
[2024-01-27 20:00] VITALS: BP 119/58; PULSE 72; RESP 20; TEMP 37.3; O2SAT 97
[2024-01-28] VITALS: BP 109/53; PULSE 74; RESP 18; TEMP 37.6; O2SAT 96
[2024-01-28] MEDS: OXYCODONE IR 5 MG TABLET PO ×5 (00:40→18:33)
[2024-01-28] MEDS: PIPERACILLIN/TAZO 3.375 GM in SODIUM CHLORIDE 0.9% 100 ML IV (01:37)
[2024-01-28 04:44] VITALS: BP 105/56; PULSE 78; RESP 18; TEMP 37.1; O2SAT 96
[2024-01-28 07:00] LABS: Add Manual Diff / Slide Review NO; Basophils Absolute Auto 200 /uL (0-100); Basophils Percent Auto 1.3 % (0-2); Eosinophils Absolute Auto 0 /uL (0-450); Eosinophils Percent Auto 0.3 % (2-4); Hematocrit 25.8 % (36-46); Hemoglobin 8.7 g/dL (12.0-16.0); Lymphocytes Absolute Auto 2600 /uL (1100-4500); Lymphocytes Percent Auto 22.3 % (25-40); Mean Corpuscular HGB Conc 33.6 % (30-36); Mean Corpuscular Volume 86.2 fL (80-100); Monocytes Absolute Auto 900 /uL (0-900); Monocytes Percent Auto 7.3 % (3-14); Neutrophils Absolute Auto 8000 /uL (1500-7000); Neutrophils Percent Auto 68.8 % (50-75); Platelet Count 324 X10^3/uL (150-400); Red Blood Cell Count 2.99 X10^6/uL (4.0-5.2); White Blood Cell Count 11.7 X10^3/uL (4.5-11.0)
[2024-01-28 08:00] VITALS: BP 108/57; PULSE 77; RESP 19; TEMP 36.8; O2SAT 96
[2024-01-28] MEDS: LEVOTHYROXINE 25 MCG TABLET PO (08:15)
[2024-01-28] MEDS: levETIRAcetam 250 MG TABLET 500 MG PO ×2 (08:45→21:11)
[2024-01-28] MEDS: GABAPENTIN 300 MG CAPSULE PO ×3 (08:45→21:10)
[2024-01-28] MEDS: levoFLOXacin 250 MG TABLET 750 MG PO (08:45)
[2024-01-28] MEDS: PROPRANOLOL 10 MG TABLET 60 MG PO ×2 (08:45→21:07)
[2024-01-28] MEDS: SERTRALINE 50 MG TABLET PO (08:45)
[2024-01-28] MEDS: SODIUM CHLORIDE 0.9% FLUSH 10 ML IV ×2 (08:46→21:11)
--- NOTE | 2024-01-28 10:29 | P.DS_ITS ---
<Statement entered by Lisa Gomez MD - 02/06/24 12:48> Patient was septic on admission, responded well with IV antibiotics. History of Present Illness History of Present Illness Date Patient Seen: 01/28/24 Time Patient Seen: 10:29 Chief complaint: ABD pain, Narrative: Failed medical management or ruptured appendicitis with abscess Discharge Providers Provider Date of admission: 01/25/24 13:20 Discharge Date: 01/29/24 Primary care physician: Maryann Miller PA-C Consults: 01/25/24 13:20 Consult to General Surgery Stat Comment: Consulting Provider: Lisa Gomez Reason for consultation: Acute appendicitis Has provider been notified: Yes Discharge provider: Lisa Gomez MD Summary Hospital Course Discharge Diagnosis: sepsisi rupture appendicitis Hospital Course: IV antibiotics and Lap appy Status at Discharge Cognitive/behavioral status at discharge: at baseline, oriented Functional status at discharge: independent ambulation Overall status at discharge: patient is progressing back to baseline Time Spent with Patient Time spent: Less than 30 minutes Exam Vital Signs (past 8 hours): - 01/28/24 04:44 01/28/24 08:00 01/28/24 08:00 Temperature 98.8 F 98.2 F Pulse Rate 78 77 Respiratory Rate 18 19 Blood Pressure 105/56 L 108/57 L Pulse Oximetry 96 96 Oxygen Delivery Method Room Air Oxygen Flow Rate 0 0 Oxygen Delivery Method Room Air Oxygen Flow Rate 0 Const General: cooperative and comfortable Nutritional Appearance: average body habitus HENMT Head: normocephalic and atraumatic Eyes Conjunctivae: conjunctivae normal Sclera: sclerae normal Neck Neck: trachea midline and No JVD Chest Chest: normal inspection of the chest Resp Effort & Inspection: normal respiratory effort and able to speak in complete sentences Cardio Rate: regular rate Rhythm: regular rhythm GI Palpation: soft, No guarding and tender (at incision) Skin General: elasticity normal and turgor normal Neuro General: patient alert, patient awake and patient oriented x3 Cranial Nerves: tongue midline Extrem General: normal to inspection Psych Mental Status: mental status grossly normal Affect: normal affect Judgment: judgment good Objective Labs 01/29/24 03:00 01/27/24 04:30 Labs: Laboratory Results - last 24 hr 01/28/24 06:45 WBC 11.7 H RBC 2.99 L Hgb 8.7 L Hct 25.8 L MCV 86.2 MCH 29.0 MCHC 33.6 RDW 14.0 Plt Count 324 Neut % (Auto) 68.8 D Lymph % (Auto) 22.3 L [place] % (Auto) 7.3 Eos % (Auto) 0.3 L Baso % (Auto) 1.3 Neut # (Auto) 8000 H Lymph # (Auto) 2600 [place] # (Auto) 900 Eos # (Auto) 0 Baso # (Auto) 200 H PFSH Medical History (Updated 01/26/24 @ 11:04 by Lisa Gomez MD) Encounter for hepatitis C screening test for low risk patient Abdominal pain Screening for cardiovascular condition Proteinuria Hypothyroidism Zoster History of seizure Elevated HDL Arthritis of sacroiliac joint of both sides Pubic bone pain Personal history of colonic polyps 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 Vulvar atrophy Fibromyalgia Depression Swallowing problem Chronic migraine without aura with status migrainosus, not intractable Age-related osteoporosis without current pathological fracture Lichen sclerosus of female genitalia Degenerative joint disease Atrophic vulvovaginitis History of anemia Surgical History (Updated 02/04/24 @ 11:26 by Maryann Miller PA-C) H/O wisdom tooth extraction H/O total hip arthroplasty H/O section History of carpal tunnel release Social History household members: none Smoking Status: Never smoker alcohol intake: never Discharge Assessment & Plan Assessment and Plan Assessment: Patient was septic on admission which resolved with IV antibiotics and surgery Plan of Treatment: [place] home [place] ([facility] tomorrow morning if no fever and WBC <11,000 Discharge Plan Discharge Plan Patient Disposition: Home Discharge orders & Medications Prescriptions: New levofloxacin 250 mg Tablet 750 mg PO 0700 Qty: 10 0RF oxycodone 5 mg Tablet 5 mg PO Q4HR PRN (Reason: Pain, Moderate (4-6)) Qty: 30 0RF prednisone 10 mg tablet 10 mg PO DAILY Qty: 14 0RF Continued levetiracetam [Keppra] 500 MG tablet 500 mg PO BID Qty: 180 3RF levothyroxine 25 mcg tablet 25 mcg PO QAM Qty: 90 3RF sertraline 50 mg tablet 50 mg PO DAILY Qty: 90 3RF Rx Instructions: takes at bedtime gabapentin 300 mg capsule 600 mg PO BEDTIME raloxifene 60 mg tablet 60 mg PO BEDTIME amoxicillin-pot clavulanate [Augmentin] 500-125 mg tablet 1 tab PO BID Qty: 10 0RF propranolol 120 mg capsule,extended release 24 hr 120 mg PO BEDTIME hydrocodone-acetaminophen 7.5-325 mg tablet 1 tab PO BEDTIME PRN (Reason: Pain (Scale Score 4-6)) Follow up/Referrals: Lisa Gomez MD [Physician] - Maryann Miller PA-C [Primary Care Provider] - Diet/Activity/Treatments Diet: Diet as Tolerated Skin/Wound/Dressing Care Report to your healthcare provider any signs of infection, such as:: chills, fever, increased pain, unusual drainage and unusual redness Visit Report/Discharge Packet Instructions: DI for an Appendectomy, DI for Prescription Opioid Use, [facility]: Wound Care Stand Alone Forms: Patient Portal/API, Stroke Signs & Symptoms, Surgery Discharge Discharge Data Primary Care Provider: Maryann Miller
[2024-01-28] MEDS: CALCIUM CARBONATE 500 MG TAB 1000 MG PO ×2 (11:46→18:33)
--- NOTE | 2024-01-28 15:23 | CM.DPNOTE ---
DCP Cont Patient discussed in multidisciplinary rounds. Patient is SBA, on room air, diet advanced. Likely medically cleared for discharge home tomorrow. No needs from this CM team identified. Anticipate discharge home w/friends and family to assist as needed, close outpatient follow up. ABDI
[2024-01-28 17:06] VITALS: BP 101/54; PULSE 78; RESP 18; TEMP 36.6; O2SAT 98
[2024-01-28 20:00] VITALS: BP 107/54; PULSE 78; RESP 19; TEMP 36.4; O2SAT 96
--- NOTE | 2024-01-28 23:29 | PC.NURSE ---
2229--rec'd report and assumed care of pt; pt denies c/o pain or nausea; abd ansley CDI
[2024-01-29] VITALS: BP 98/53; PULSE 78; RESP 19; TEMP 37.2; O2SAT 98
[2024-01-29] MEDS: OXYCODONE IR 5 MG TABLET PO ×4 (00:12→14:04)
[2024-01-29 03:22] LABS: Add Manual Diff / Slide Review NO; Basophils Absolute Auto 0 /uL (0-100); Basophils Percent Auto 0.5 % (0-2); Eosinophils Absolute Auto 200 /uL (0-450); Eosinophils Percent Auto 2.5 % (2-4); Hematocrit 28.2 % (36-46); Hemoglobin 9.5 g/dL (12.0-16.0); Lymphocytes Absolute Auto 2300 /uL (1100-4500); Lymphocytes Percent Auto 28.4 % (25-40); Mean Corpuscular HGB Conc 33.8 % (30-36); Mean Corpuscular Hemoglobin 29.1 PG (26-34); Mean Corpuscular Volume 86.1 fL (80-100); Monocytes Absolute Auto 700 /uL (0-900); Monocytes Percent Auto 9.1 % (3-14); Neutrophils Absolute Auto 4800 /uL (1500-7000); Neutrophils Percent Auto 59.5 % (50-75); Platelet Count 363 X10^3/uL (150-400); Red Blood Cell Count 3.28 X10^6/uL (4.0-5.2); Red Cell Distribution Width 13.6 % (11.6-14.8)
[2024-01-29 04:58] VITALS: BP 102/59; PULSE 80; RESP 19; TEMP 36.6; O2SAT 96
[2024-01-29] MEDS: LEVOTHYROXINE 25 MCG TABLET PO (06:06)
[2024-01-29] MEDS: levoFLOXacin 250 MG TABLET 750 MG PO (06:06)
[2024-01-29 08:00] VITALS: BP 107/53; PULSE 79; RESP 15; O2SAT 95
[2024-01-29] MEDS: levETIRAcetam 250 MG TABLET 500 MG PO (08:46)
[2024-01-29] MEDS: GABAPENTIN 300 MG CAPSULE PO (08:47)
[2024-01-29] MEDS: SODIUM CHLORIDE 0.9% FLUSH 10 ML IV (08:47)
[2024-01-29] MEDS: SERTRALINE 50 MG TABLET PO (08:47)
[2024-01-29] MEDS: HEPARIN 5,000 UNIT/ML VIAL 5000 UNIT SUBCUT (08:47)
[2024-01-29 09:35] VITALS: TEMP 36.7
[2024-01-29 13:00] VITALS: BP 108/53; PULSE 89; RESP 14; TEMP 36.8; O2SAT 95
--- NOTE | 2024-01-29 14:21 | PC.NURSE ---
Day shift: Spoke with MD Sinha regarding patient's 900mL + serous ELMA drainage output last shift. This RN wanted clarification prior to discharge and pulling patient's ELMA drain. MD stated ok to pull if serous drainage. Removed drain. Covered with gauze and tape. Discharge instructions gone over with patient. All questions answered, patient stated understanding. PIV removed prior to discharge. All belongings with patient. Patient's friend arrived from [place] to take patient back home to [place].
== END 2024-01-29 14:17 | disposition home or self-care (01) | DRG 853 ==
LOC: ED 13:20 → AC 13:21 → ICU 13:53
PROVIDERS: Admitting Provider Surgery; Emergency Provider Emergency Medicine; PCP Physician Assistant; Referring Provider Emergency Medicine; Visit Provider Surgery
PROC: 0DTJ4ZZ Resection of Appendix, Percutaneous Endoscopic Approach (ICD-10-PCS; CPT 44970; principal; 2024-01-26 11:00)
DX: A41.9 Sepsis, unspecified organism (principal); K35.33 Acute appendicitis with perforation, localized peritonitis, and gangrene, with abscess; E03.9 Hypothyroidism, unspecified; F32.A Depression, unspecified; M81.0 Age-related osteoporosis without current pathological fracture; R00.0 Tachycardia, unspecified
CPT/HCPCS: 36415; 44970; 71045; 74177; 80048; 80053; 81003; 83605; 83690; 84145; 85025; 87040; 87797; 93005; 93010; 96365; 96367; 96375; 99221; 99284; J0136; J0171; J0696; J1100; J1170; J1644; J2250; J2270; J2405; J2543; J2704; J3010; J3490; J7050; Q9967

== ENCOUNTER → 2024-02-10 09:46 | Outpatient (CLI) | payer MEDICARE, SELFPAY ==
[2024-01-25 13:53] VITALS: BMI 23.3
[2024-02-10 19:56] LABS: Alanine Aminotransferase 7 IU/L (<35); Albumin 3.6 g/dL (3.5-5.0); Albumin Globulin Ratio 1.4 (1.0-2.8); Alkaline Phosphatase 56 U/L (38-126); Aspartate Aminotransferase 26 IU/L (14-36); BUN Creatinine Ratio 12.9 (6-22); Bilirubin Total 0.6 mg/dL (0.2-1.3); Blood Urea Nitrogen 12 mg/dL (7-17); Calcium 9.2 mg/dL (8.4-10.2); Carbon Dioxide 31 mmol/L (22-32); Chloride 103 mmol/L (98-107); Estimated Glomerular Filt Rate > 60 mL/min (>60); Globulin 2.5 g/dL (1.7-4.1); Glucose 91 mg/dL (80-110); HEMOLYSIS 18 (0-50); Potassium 4.8 mmol/L (3.4-5.1); Sodium 136 mmol/L (137-145); Total Protein 6.1 g/dL (6.3-8.2)
[2024-02-10 20:01] LABS: Hematocrit 31.1 % (36-46); Hemoglobin 10.2 g/dL (12.0-16.0); Mean Corpuscular HGB Conc 32.7 % (30-36); Mean Corpuscular Hemoglobin 29.2 PG (26-34); Mean Corpuscular Volume 89.2 fL (80-100); Platelet Count 425 X10^3/uL (150-400); Red Blood Cell Count 3.49 X10^6/uL (4.0-5.2); Red Cell Distribution Width 15.7 % (11.6-14.8); White Blood Cell Count 4.5 X10^3/uL (4.5-11.0)
[2024-02-10 20:05] LABS: Add Manual Diff / Slide Review YES
[2024-02-10 20:29] LABS: Neutrophils Absolute Manual 1260 /uL (3000-5900); RBC Morphology Normal Morphology; Total Cells Counted 100
== END ==
PROVIDERS: PCP Physician Assistant; Visit Provider Physician Assistant
DX: D64.9 Anemia, unspecified (principal); N18.30 Chronic kidney disease, stage 3 unspecified
CPT/HCPCS: 80053; 85007; 85025

== ENCOUNTER → 2024-03-08 15:47 | Outpatient (CLI) | payer MEDICARE, SELFPAY ==
[2024-03-08 12:49] VITALS: BMI 23.3
== END ==
PROVIDERS: PCP Physician Assistant; Visit Provider Family Medicine
DX: R30.0 Dysuria (principal)
CPT/HCPCS: 87077; 87086

== ENCOUNTER → 2024-03-30 09:23 | Outpatient (CLI) | payer MEDICARE, SELFPAY ==
[2024-03-08 12:49] VITALS: BMI 23.3
[2024-03-30 21:11] LABS: Add Manual Diff / Slide Review NO; Basophils Absolute Auto 100 /uL (0-100); Basophils Percent Auto 1.8 % (0-2); Eosinophils Absolute Auto 100 /uL (0-450); Eosinophils Percent Auto 1.6 % (2-4); Hematocrit 29.1 % (36-46); Hemoglobin 9.7 g/dL (12.0-16.0); Lymphocytes Absolute Auto 2100 /uL (1100-4500); Lymphocytes Percent Auto 36.4 % (25-40); Mean Corpuscular HGB Conc 33.2 % (30-36); Mean Corpuscular Hemoglobin 29.9 PG (26-34); Monocytes Absolute Auto 400 /uL (0-900); Monocytes Percent Auto 6.6 % (3-14); Neutrophils Absolute Auto 3100 /uL (1500-7000); Neutrophils Percent Auto 53.6 % (50-75); Platelet Count 253 X10^3/uL (150-400); Red Blood Cell Count 3.24 X10^6/uL (4.0-5.2); Red Cell Distribution Width 14.2 % (11.6-14.8); White Blood Cell Count 5.9 X10^3/uL (4.5-11.0)
[2024-03-30 21:12] LABS: Cholesterol 204 mg/dL (140-199); HDL Cholesterol 82 mg/dL (40-60); LDL Cholesterol Calculated 102 mg/dL (<100); Triglycerides 98 mg/dL (35-150)
[2024-03-30 21:25] LABS: Appearance Urine UA CLEAR; Bilirubin Urine UA NEGATIVE (NEGATIVE); Color Urine UA YELLOW; Glucose Urine UA NEGATIVE (Negative); Ketones Urine UA NEGATIVE (NEGATIVE); Leukocyte Esterase Urine UA NEGATIVE (NEGATIVE); Nitrite Urine UA NEGATIVE (Negative); Occult Blood Urine UA NEGATIVE (Negative); Protein Urine UA NEGATIVE (Negative); Urobilinogen Urine UA 0.2 E.U./dL (0.2)
[2024-03-30 21:28] LABS: pH Urine UA 6.5 (4.5-8.0)
[2024-03-30 21:31] LABS: Bacteria Urine Occasional (0-1); Culture Indicated Urine Cult Not Indicated; RBC Urine 0-1/HPF (0-5/HPF); Squamous Epithelial Cell Urine None Seen (0-5/HPF); Urine Volume 10mL (spun); WBC Urine None Seen (0-5/HPF)
[2024-03-30 22:44] LABS: Free T3, Triiodothyronine Free 2.63 pg/mL (2.77-5.27)
[2024-03-30 22:58] LABS: TSH w/ Reflex to FT4 3.92 uIU/mL (0.47-4.68)
== END ==
PROVIDERS: PCP Physician Assistant; Referring Provider Nurse Practitioner Acute Care; Visit Provider Nurse Practitioner Acute Care
DX: E03.9 Hypothyroidism, unspecified (principal); D64.9 Anemia, unspecified; Z79.899 Other long term (current) drug therapy; R94.6 Abnormal results of thyroid function studies; Z11.59 Encounter for screening for other viral diseases; Z13.6 Encounter for screening for cardiovascular disorders; R31.9 Hematuria, unspecified
CPT/HCPCS: 80061; 81001; 84443; 84481; 85025; 86803

== ENCOUNTER → 2024-04-06 14:35 | Outpatient (CLI) | payer MEDICARE, SELFPAY ==
[2024-03-08 12:49] VITALS: BMI 23.3
[2024-04-12 11:36] LABS: Fecal Immunochemical Test Negative (Negative)
== END ==
LOC: LAB 06-07 14:36
PROVIDERS: PCP Physician Assistant; Referring Provider Physician Assistant; Visit Provider Physician Assistant
DX: Z12.11 Encounter for screening for malignant neoplasm of colon (principal); D64.9 Anemia, unspecified
CPT/HCPCS: 82274

== ENCOUNTER → 2024-05-20 09:25 | Outpatient (CLI) | payer MEDICARE, SELFPAY ==
[2024-03-08 12:49] VITALS: BMI 23.3
[2024-05-20 10:05] LABS: Alanine Aminotransferase 10 IU/L (<35); Albumin 4.2 g/dL (3.5-5.0); Albumin Globulin Ratio 1.7 (1.0-2.8); Alkaline Phosphatase 55 U/L (38-126); Aspartate Aminotransferase 26 IU/L (14-36); BUN Creatinine Ratio 11.2 (6-22); Bilirubin Total 0.6 mg/dL (0.2-1.3); Blood Urea Nitrogen 12 mg/dL (7-17); Carbon Dioxide 28 mmol/L (22-32); Chloride 104 mmol/L (98-107); Estimated Glomerular Filt Rate 55 mL/min (>60); Globulin 2.5 g/dL (1.7-4.1); Glucose 96 mg/dL (80-110); HEMOLYSIS < 15 (0-50); Potassium 4.2 mmol/L (3.4-5.1); Sodium 138 mmol/L (137-145); Total Protein 6.7 g/dL (6.3-8.2)
--- NOTE | 2024-05-20 12:08 | DI.CT.S_ITS ---
PROCEDURE: CT ABDOMEN PELVIS W CON INDICATIONS: abd px s/p ruptured appy w/appendectomy. L lower abd mass TECHNIQUE: After the administration of intravenous contrast, axial sections acquired from the lung bases to the pubic symphysis. Coronal and sagittal reformats were performed. For radiation dose reduction, the following was used: automated exposure control, adjustment of mA and/or kV according to patient size. COMPARISON: [facility], CT, CT ABDOMEN PELVIS W CON, 01/25/2024, 12:21. FINDINGS: Image quality: Diagnostic. Lower Chest: Partially visualized 3 mm right lower lobe micro nodule (01/13). ABDOMEN: Liver: No solid mass. Gallbladder: No radiopaque gallstones or wall thickening. Biliary ducts: No biliary dilation. Pancreas: No ductal dilation. Spleen: Size is within normal limits. Adrenal Glands: No adrenal nodules. Kidneys and Ureters: No hydronephrosis. No solid mass. No complex renal cystic lesion which requires follow up. Stomach and Bowel: Normal colonic caliber, without significant wall thickening. Peritoneum: No abnormal intraperitoneal fluid. No free air. Ventral Wall: No significant ventral hernia. Abdominal Nodes: No retroperitoneal or mesenteric adenopathy by size criteria. Vessels: Aorta and inferior vena cava are normal in size. Mild atherosclerotic vascular calcifications. PELVIS: Pelvic Organs: Prominent adnexal vessels, left greater than right. Bladder: Evaluation is limited secondary to decompression and streak artifact from right hip arthroplasty. Pelvic Nodes: No enlarged lymph nodes. Miscellaneous: No inguinal hernias are seen. Bones: No aggressive osseous abnormality. Degenerative changes of the spine. Right hip arthroplasty. Decreased osseous mineralization. IMPRESSION: 1. No acute findings within the abdomen or pelvis to explain patient's symptoms. 2. Prominent adnexal vessels, left greater than right. This is a nonspecific finding which can be seen with pelvic congestion syndrome, recommend clinical correlation. Dictated by: Esteban Guidry M.D. on 05/20/2024 at 13:34 Approved by: Esteban Guidry M.D. on 05/20/2024 at 13:38
== END ==
PROVIDERS: PCP Physician Assistant; Referring Provider Physician Assistant; Visit Provider Physician Assistant
DX: Z01.812 Encounter for preprocedural laboratory examination (principal); R91.1 Solitary pulmonary nodule; R93.89 Abnormal findings on diagnostic imaging of other specified body structures; R10.9 Unspecified abdominal pain; I70.90 Unspecified atherosclerosis; Z90.49 Acquired absence of other specified parts of digestive tract; Z96.641 Presence of right artificial hip joint
CPT/HCPCS: 36415; 74177; 80053; Q9967

== ENCOUNTER → 2025-01-25 10:52 | Outpatient (CLI) | payer MEDICARE, SELFPAY ==
[2024-03-08 12:49] VITALS: BMI 23.3
[2025-01-25 19:02] LABS: Add Manual Diff / Slide Review NO; Basophils Absolute Auto 100 /uL (0-100); Basophils Percent Auto 0.8 % (0-2); Eosinophils Absolute Auto 100 /uL (0-450); Hematocrit 32.5 % (36-46); Hemoglobin 11.1 g/dL (12.0-16.0); Lymphocytes Absolute Auto 2300 /uL (1100-4500); Lymphocytes Percent Auto 36.6 % (25-40); Mean Corpuscular HGB Conc 34.2 % (30-36); Mean Corpuscular Hemoglobin 29.8 PG (26-34); Mean Corpuscular Volume 87.3 fL (80-100); Monocytes Absolute Auto 400 /uL (0-900); Monocytes Percent Auto 6.4 % (3-14); Neutrophils Absolute Auto 3400 /uL (1500-7000); Neutrophils Percent Auto 54.2 % (50-75); Platelet Count 213 X10^3/uL (150-400); Red Blood Cell Count 3.72 X10^6/uL (4.0-5.2); Red Cell Distribution Width 14.1 % (11.6-14.8); White Blood Cell Count 6.3 X10^3/uL (4.5-11.0)
[2025-01-25 19:13] LABS: HEMOLYSIS < 15 (0-50); Iron 93 ug/dL (37-170)
[2025-01-25 19:14] LABS: Alanine Aminotransferase 12 IU/L (<35); Albumin 4.1 g/dL (3.5-5.0); Albumin Globulin Ratio 1.6 (1.0-2.8); Alkaline Phosphatase 59 U/L (38-126); Aspartate Aminotransferase 29 IU/L (14-36); BUN Creatinine Ratio 11.7 (6-22); Bilirubin Total 0.7 mg/dL (0.2-1.3); Blood Urea Nitrogen 14 mg/dL (7-17); Calcium 9.1 mg/dL (8.4-10.2); Carbon Dioxide 30 mmol/L (22-32); Chloride 102 mmol/L (98-107); Estimated Glomerular Filt Rate 48 mL/min (>60); Globulin 2.5 g/dL (1.7-4.1); Glucose 94 mg/dL (70-99); HEMOLYSIS < 15 (0-50); Potassium 4.2 mmol/L (3.4-5.1); Sodium 138 mmol/L (137-145); Total Protein 6.6 g/dL (6.3-8.2)
[2025-01-25 19:23] LABS: Erythrocyte Sedimentation Rate 10 MM/HR (0-20)
[2025-01-25 19:29] LABS: Percent Iron Saturation 46 % (15-50); Total Iron Binding Capacity 204 ug/dL (265-497); Transferrin 178 mg/dL (206-381)
[2025-01-25 19:32] LABS: Free T3, Triiodothyronine Free 3.11 pg/mL (2.77-5.27)
[2025-01-25 19:46] LABS: TSH w/ Reflex to FT4 4.02 uIU/mL (0.47-4.68)
== END ==
PROVIDERS: PCP Physician Assistant; Visit Provider Physician Assistant
DX: D64.9 Anemia, unspecified (principal); R79.89 Other specified abnormal findings of blood chemistry; N28.9 Disorder of kidney and ureter, unspecified; M25.50 Pain in unspecified joint
CPT/HCPCS: 80053; 83540; 83550; 84443; 84481; 85025; 85651

== ENCOUNTER → 2025-04-19 12:31 | Outpatient (CLI) | payer MEDICARE, SELFPAY ==
[2024-03-08 12:49] VITALS: BMI 23.3
--- NOTE | 2025-04-19 12:32 | DI.US.S_ITS ---
PROCEDURE: US PELVIC COMPLETE INDICATIONS: prior US abnormalities, possible thickened endometrium TECHNIQUE: Real-time scanning was performed of the pelvic organs, with image documentation. Additional endovaginal scanning was necessary due to incomplete visualization of the adnexal and endometrial structures by transabdominal scanning. COMPARISON: [facility], US, US PELVIC COMPLETE, 06/25/2022, 12:51. FINDINGS: Uterus: Anteverted positioning. 5.2 x 2.4 x 3 cm. Lower uterine segment cyst measures 1 x 1 cm. Small amount of free fluid is seen in the cervix. Small amount of endometrial fluid also present. Overall endometrium measures combined thickness of 0.2-0.3 cm Ovaries: Not visualized Other: No pathologic free fluid IMPRESSION: Combined endometrial thickness is within normal limits. Small amount of endometrial and endocervical fluid. Small lower uterine cyst measuring 1 x 1 cm. No adnexal mass lesion. Dictated by: Niko Mckenna M.D. on 04/20/2025 at 6:38 Approved by: Niko Mckenna M.D. on 04/20/2025 at 15:52
== END ==
PROVIDERS: PCP Physician Assistant; Referring Provider Nurse Practitioner Adult Health; Visit Provider Nurse Practitioner Adult Health
DX: N94.89 Other specified conditions associated with female genital organs and menstrual cycle (principal); N85.8 Other specified noninflammatory disorders of uterus
CPT/HCPCS: 76856

== ENCOUNTER → 2025-04-21 09:01 | Outpatient (CLI) | payer MEDICARE, SELFPAY ==
[2024-03-08 12:49] VITALS: BMI 23.3
[2025-04-21 19:44] LABS: Alanine Aminotransferase 13 IU/L (<35); Albumin 4.0 g/dL (3.5-5.0); Albumin Globulin Ratio 1.5 (1.0-2.8); Alkaline Phosphatase 55 U/L (38-126); Blood Urea Nitrogen 13 mg/dL (7-17); Calcium 9.2 mg/dL (8.4-10.2); Carbon Dioxide 31 mmol/L (22-32); Chloride 103 mmol/L (98-107); Cholesterol 205 mg/dL (140-199); Estimated Glomerular Filt Rate 51 mL/min (>60); Globulin 2.6 g/dL (1.7-4.1); Glucose 90 mg/dL (70-99); HDL Cholesterol 92 mg/dL (40-60); HEMOLYSIS < 15 (0-50); Potassium 4.3 mmol/L (3.4-5.1); Sodium 138 mmol/L (137-145); Total Protein 6.6 g/dL (6.3-8.2); Triglycerides 97 mg/dL (35-150)
== END ==
PROVIDERS: PCP Physician Assistant; Visit Provider Physician Assistant
DX: Z13.6 Encounter for screening for cardiovascular disorders (principal); N18.30 Chronic kidney disease, stage 3 unspecified
CPT/HCPCS: 80053; 80061